=== PATIENT | female | born 1990 | race Asian ===

== ENCOUNTER 2020-01-21 11:40 | Inpatient (IN) ==
[2020-01-21] MEDS ORDERED: ONDANSETRON INJ 2 MG/ML 2 ML VIAL IV STA (12:11)
[2020-01-21] MEDS ORDERED: SODIUM CHLORIDE 0.9% 1000ML 1,000 ML IV ONE (12:11)
[2020-01-21] MEDS ORDERED: MoRPHine SULFATE 2 MG/ML CARP IV STA (12:11)
[2020-01-21 13:00] LABS: Appearance Urine Clear (Clear); Bilirubin Urine Negative (Negative); Blood Urine 1+ (Negative); Color Urine Yellow; Glucose Urine UA Negative (Negative); Ketones Urine 3+ (Negative); Leukocyte Esterase Urine Negative (Negative); Nitrite Urine Negative (Negative); Protein Urine Negative (Negative); Urobilinogen Urine Negative (Negative)
--- NOTE | 2020-01-21 13:03 | Emergency Department Note ---
History of Present Illness General Chief Complaint: Diarrhea Stated Complaint: DIARRHEA Time Seen by Provider: 01/21/20 11:53 History of Present Illness Maximum Pain Intensity: 9 This patient is a 29-year-old female who presents emergency department complaining of lower abdominal cramping and bloody diarrhea has been going on for the last 3 days. The patient has a history of the same symptoms. She is followed up with GI. She had a colonoscopy in December of this year. It showed pancolitis. The patient also reports nausea and a few episodes of vomiting. She was recently on a course of an unknown antibiotic, which seemed to improve her symptoms. She denies any fever. No recent travel. The patient contacted her GI doctor today who sent her here for evaluation. Home Medications Home Medications Medication Instructions Recorded Confirmed Type Lialda 1.2 gram tablet,delayed 2.4 gm PO BID #120 tab NS 12/25/19 01/21/20 Rx release prednisone 10 mg tablet See Rx Instructions .ROUTE 01/06/20 01/21/20 Rx .COMPLEX #126 tab lansoprazole 30 mg PO QAM 01/21/20 01/21/20 History ondansetron HCl [Zofran] 4 mg PO Q6H PRN #20 tab 01/21/20 Rx prednisone 10 mg PO DAILY #11 tab 01/21/20 Rx prenat.vits,jack,rfr-[id number] 1 tab PO Q3D 01/21/20 01/21/20 History [ #2] Allergies Allergy/AdvReac Type Severity Reaction Status Date / Time Penicillins Allergy Mild Rash Verified 01/21/20 13:55 Past Med/Surg History Medical History No significant past medical history Rectal bleeding reason for colonoscopy Surgical History History of wisdom tooth extraction Family History Family/Other No problems noted. Grandfather (Paternal) Family history of diabetes mellitus Other No family history of adverse response to anesthesia Denies family history of Crohn's disease Colorectal cancer Ulcerative colitis Social History Smoking Status: Never smoker Second Hand Exposure: No; Hx Alcohol Use: No Hx Substance Use: No Preferred Language: Mandarin Indonesian Communication Ability: Impaired Vp Clinical Research Required: No Beliefs That Will Affect Care: None marital status: Current Living Situation: Spouse Feels Safe at Home: Yes Safety Concerns: Feels Safe At This Time Review of Systems A total of 10 systems reviewed and were otherwise negative Physical Exam Vital Signs: Vital Signs - 24 hr 01/22/20 19:19 01/22/20 22:12 01/22/20 23:00 Temperature 36.7 C 36.4 C L Temperature Source Oral Oral Pulse Rate 68 Pulse Rate [Finger ] 64 66 Respiratory Rate 16 16 Blood Pressure [Ri ght Arm] 102/65 102/68 Blood Pressure Francesca n [Right Arm] 77 79 Blood Pressure Pos ition [Right Arm] Lying Lying Pulse Oximetry 97 97 Oxygen Delivery Me thod Room Air Room Air 01/23/20 03:49 01/23/20 06:37 01/23/20 09:00 Temperature 36.5 C 36.4 C L Temperature Source Oral Oral Pulse Rate 76 Pulse Rate [Finger ] 69 66 Respiratory Rate 16 16 Blood Pressure [Ri ght Arm] 101/64 96/62 L Blood Pressure Francesca n [Right Arm] 76 73 Blood Pressure Pos ition [Right Arm] Lying Lying Pulse Oximetry 98 98 Oxygen Delivery Me thod Room Air Room Air 01/23/20 11:45 01/23/20 14:00 01/23/20 15:27 Temperature 37.5 C 38.2 C H 38.2 C H Temperature Source Oral Axillary Oral Pulse Rate Pulse Rate [Finger ] 98 H 105 H Respiratory Rate 16 16 Blood Pressure [Ri ght Arm] 104/64 Blood Pressure Francesca n [Right Arm] 77 Blood Pressure Pos ition [Right Arm] Lying Pulse Oximetry 97 Oxygen Delivery Me thod Room Air 01/23/20 15:40 Temperature 39.3 C H Temperature Source Axillary Pulse Rate Pulse Rate [Finger ] 101 H Respiratory Rate 16 Blood Pressure [Ri ght Arm] 100/64 Blood Pressure Francesca n [Right Arm] 76 Blood Pressure Pos ition [Right Arm] Semi-fowlers Pulse Oximetry 99 Oxygen Delivery Me thod Room Air Constitutional: WD/WN, vitals as above Eyes: EOM intact bilaterally ENMT: Oral mucosa dry Neck: trachea midline Respiratory: normal respiratory effort, lungs clear to auscultation Cardiovascular: RRR, no murmur, no edema Gastrointestinal (Abdomen): Diffuse lower abdominal tenderness. No guarding or rebound tenderness noted. Bowel sounds hyperactive in all quadrants. Musculoskeletal: no cyanosis or clubbing, extremities motor strength 5/5 Skin: no rashes, warm and dry Neurologic: Alert and oriented x3. No focal motor deficits. Psychiatric: Acting appropriately Course Course Patient was seen and examined Vital signs including blood pressure were reviewed medications list was verified with patient Labs were obtained, and a saline lock was established Medications ordered Imaging performed and reviewed Upon reevaluation, the patient was not complaining of knee pain. An x-ray of the knee was performed and reviewed. We discussed all of the results of her imaging. We also discussed the recommendations from her GI doctor. She voiced understanding and was tolerating fluids. She did continue to have bloody diarrhea, and did not feel comfortable going home Hospitalist service was consulted for likely inpt management Consultations Consultation #1: Dr. Wray Consultation #2: il neeraj hospitalist Administered Medications Acetaminophen (Acetaminophen 325 Mg Tab) 650 mg PO Q4H PRN PRN Reason: Pain or Fever Stop: 02/20/20 21:46 Last Admin: 01/23/20 16:06 Dose: 650 mg Documented by: [id number] Potassium Chloride/Sodium Chloride (Normal Saline W/20 Meq Kcl) 20 meq in 1,000 mls @ 88 mls/hr IV .[id number] SHANELL Stop: 02/20/20 21:46 Last Admin: 01/23/20 16:07 Dose: 120 mls/hr Documented by: [id number] Infusion: 01/23/20 16:07 Dose: 120 mls/hr Documented by: [id number] Admin: 01/23/20 08:01 Dose: 120 mls/hr Documented by: [id number] Infusion: 01/23/20 07:58 Dose: 120 mls/hr Documented by: [id number] Admin: 01/22/20 23:38 Dose: 120 mls/hr Documented by: [id number] Infusion: 01/22/20 23:38 Dose: 120 mls/hr Documented by: [id number] Admin: 01/22/20 15:34 Dose: 120 mls/hr Documented by: [id number] Infusion: 01/22/20 15:01 Dose: 120 mls/hr Documented by: [id number] Admin: 01/22/20 06:41 Dose: 120 mls/hr Documented by: [id number] Infusion: 01/22/20 06:41 Dose: 120 mls/hr Documented by: [id number] Admin: 01/21/20 22:38 Dose: 120 mls/hr Documented by: [id number] Famotidine 20 mg/ Syringe 5 mls @ 2.5 mls/min IV BID PRN PRN Reason: Stomach Pain Stop: 02/20/20 21:46 Last Admin: 01/23/20 05:15 Dose: 2.5 mls/min Documented by: [id number] Methylprednisolone 30 mg/ (Syringe) 0.48 mls @ 1.5 mls/min IV BID [facility] Stop: 02/21/20 08:59 Last Admin: 01/23/20 09:03 Dose: 1.5 mls/min Documented by: [id number] Admin: 01/22/20 20:19 Dose: Not Given Documented by: [id number] Admin: 01/22/20 09:22 Dose: 1.5 mls/min Documented by: [id number] Ceftriaxone Sodium 1,000 mg/ (Dextrose) 50 mls @ 100 mls/hr IV Q24H [facility]; Protocol Stop: 02/02/20 16:59 Last Admin: 01/23/20 17:43 Dose: 100 mls/hr Documented by: [id number] Magnesium Oxide (Magnesium Oxide 400 Mg Tab) 400 mg PO BID [facility] Stop: 02/20/20 21:46 Last Admin: 01/23/20 09:02 Dose: 400 mg Documented by: [id number] Admin: 01/22/20 20:15 Dose: 400 mg Documented by: [id number] Admin: 01/22/20 09:20 Dose: 400 mg Documented by: [id number] Admin: 01/21/20 22:37 Dose: 400 mg Documented by: [id number] Mesalamine (Mesalamine 800 Mg Tabcr) 1,600 mg PO TID [facility] Stop: 02/21/20 13:59 Last Admin: 01/23/20 13:52 Dose: Not Given Documented by: [id number] Admin: 01/23/20 13:00 Dose: 1,600 mg Documented by: [id number] Admin: 01/22/20 20:15 Dose: 1,600 mg Documented by: [id number] Admin: 01/22/20 13:48 Dose: 1,600 mg Documented by: [id number] Miscellaneous (Mesalamine [Lialda] 2.4 Gm: Order Awaiting Action) 1 ea N/A QS [facility] Stop: 02/21/20 00:00 Last Admin: 01/23/20 16:07 Dose: Not Given Documented by: [id number] Admin: 01/23/20 08:03 Dose: Not Given Documented by: [id number] Admin: 01/22/20 23:48 Dose: Not Given Documented by: [id number] Admin: 01/22/20 15:35 Dose: Not Given Documented by: [id number] Admin: 01/22/20 09:20 Dose: Not Given Documented by: [id number] Admin: 01/22/20 00:03 Dose: Not Given Documented by: [id number] Multi-Ingredient Cream (Artificial Tears Op Oint 3.5 Gm Tube) 1 appln OP DAILY [facility] Stop: 02/22/20 11:44 Last Admin: 01/23/20 13:22 Dose: Not Given Documented by: [id number] Multivitamins/Minerals (Calcium 600mg + Vit D 400 Iu Tab) 1 tab PO BID [facility] Stop: 02/21/20 20:59 Last Admin: 01/23/20 09:02 Dose: 1 tab Documented by: [id number] Admin: 01/22/20 20:15 Dose: 1 tab Documented by: [id number] Ondansetron HCl (Ondansetron Inj 2 Mg/Ml 2 Ml Vial) 4 mg IV Q6H PRN PRN Reason: Nausea Stop: 02/22/20 08:09 Last Admin: 01/23/20 09:28 Dose: 4 mg Documented by: [id number] Pantoprazole Sodium (Pantoprazole 40 Mg Tab) 40 mg PO DAILY SHANELL Stop: 02/21/20 08:59 Last Admin: 01/23/20 09:02 Dose: 40 mg Documented by: [id number] Admin: 01/22/20 09:20 Dose: 40 mg Documented by: [id number] Discontinued Medications Sodium Chloride (Nss 1000ml) 1,000 mls @ 999 mls/hr IV .Q1H1M ONE Stop: 01/21/20 13:11 Last Infusion: 01/21/20 14:59 Dose: 0 mls/hr Documented by: [id number] Admin: 01/21/20 13:53 Dose: 999 mls/hr Documented by: [id number] Sodium Chloride (Nss 1000ml) 500 mls @ 999 mls/hr IV .Q31M ONE Stop: 01/21/20 15:23 Last Infusion: 01/21/20 16:01 Dose: 0 mls/hr Documented by: [id number] Admin: 01/21/20 15:25 Dose: 999 mls/hr Documented by: [id number] Potassium Chloride (K Claudio / Wtr) 10 meq in 100 mls @ 100 mls/hr IV Q1H SHANELL Stop: 01/22/20 01:59 Last Infusion: 01/22/20 07:15 Dose: 0 mls/hr Documented by: [id number] Admin: 01/22/20 04:56 Dose: 50 mls/hr Documented by: [id number] Infusion: 01/22/20 04:37 Dose: 50 mls/hr Documented by: [id number] Infusion: 01/22/20 03:17 Dose: 50 mls/hr Documented by: [id number] Admin: 01/22/20 02:46 Dose: 65 mls/hr Documented by: [id number] Infusion: 01/22/20 02:43 Dose: 50 mls/hr Documented by: [id number] Admin: 01/22/20 00:43 Dose: 50 mls/hr Documented by: [id number] Infusion: 01/22/20 00:28 Dose: 50 mls/hr Documented by: [id number] Infusion: 01/21/20 22:49 Dose: 50 mls/hr Documented by: [id number] Admin: 01/21/20 22:38 Dose: 100 mls/hr Documented by: [id number] Ioversol (Ioversol 100ml) 92 ml IV ONCE ONE Stop: 01/21/20 15:52 Last Admin: 01/21/20 15:51 Dose: 92 ml Documented by: [id number] Methylprednisolone (Methylprednisolone 125 Mg/2 Ml Vial) 60 mg IV NOW STA Stop: 01/21/20 20:18 Last Admin: 01/21/20 20:36 Dose: 60 mg Documented by: [id number] Morphine Sulfate (Morphine Sulfate 2 Mg/Ml Carp) 2 mg IV NOW STA Stop: 01/21/20 12:12 Last Admin: 01/21/20 13:53 Dose: Not Given Documented by: [id number] Ondansetron HCl (Ondansetron Inj 2 Mg/Ml 2 Ml Vial) 4 mg IV NOW STA Stop: 01/21/20 12:12 Last Admin: 01/21/20 13:53 Dose: Not Given Documented by: [id number] Potassium Chloride (Potassium Chloride 20 Meq/15 Ml Udc) 40 meq PO NOW STA Stop: 01/21/20 15:14 Last Admin: 01/21/20 15:25 Dose: 40 meq Documented by: [id number] Medical Decision Making Differential Diagnosis Differential diagnosis: Infectious etiology, inflammatory bowel disease, hemorrhoids, rectal abscess, anal fissure, among others This patient is a 29-year-old female who presents emergency department complaining of bloody diarrhea for the last several days. On exam, her vital signs are stable. Abdomen was slightly tender without any guarding or rebound tenderness. A work-up was performed. Her white count was slightly elevated at 14,000. She is not anemic. Her potassium and sodium are slightly low. She was hydrated in the emergency department. Her potassium was repleted. The case was discussed with her GI doctor. He said that she contacted the office and reportedly stopped her prednisone and mesalamine as she thought that it was causing her joint pain. X-ray of the knee was performed and reviewed. No acute abnormalities were noted. After lengthy observation in the ED, the pt continued to have bloody diarrhea and did not feel comfortable being discharged. Given her CT findings and labs, hospitalist consultation was felt appropriate. Medical Records Attestation: I reviewed the patient's medical records. Home Medications Current Medication List: was personally reviewed by me Laboratory Data Attestation: I reviewed the patient's lab results. Result diagrams: 01/23/20 07:00 01/22/20 06:54 Lab Results 01/21/20 01/21/20 01/21/20 Range/Units 12:45 13:45 13:45 WBC 14.35 H (4.8-10.8) K/uL RBC 5.69 H (4.2-5.4) M/uL Hgb 16.9 H (12.0-16.0) g/dL Hct 46.5 (37-47) % MCV 81.7 (80-100) fL MCH 29.7 (25-34) pg MCHC 36.3 H (32-36) g/dL RDW Std Deviation 39.0 (36.4-46.3) fL RDW Coeff of Johnathan 13.0 (11.5-14.5) % Plt Count 492 H (130-400) K/uL MPV 8.5 (7.4-10.4) fL Immature Gran % (Auto) 0.3 % Neut % (Auto) 58.9 % Lymph % (Auto) 18.2 % [place] % (Auto) 16.2 % Eos % (Auto) 5.8 % Baso % (Auto) 0.6 % Neut # (Auto) 8.46 H (1.4-6.5) K/uL Lymph # (Auto) 2.61 (1.2-3.4) K/uL [place] # (Auto) 2.32 H (0.11-0.59) K/uL Eos # (Auto) 0.83 H (0-0.5) K/uL Baso # (Auto) 0.09 (0-0.2) K/uL Immature Gran # (Auto) 0.04 H (0.00-0.02) K/uL Sodium 131 L (136-145) mmol/L Potassium 3.0 L (3.5-5.1) mmol/L Chloride 99 (98-107) mmol/L Carbon Dioxide 21 (21-32) mmol/L Anion Gap 11.0 (3-11) BUN 3 L (7-18) mg/dl Creatinine 0.61 (0.6-1.2) mg/dl Est Cr Clr Drug Dosing 97.0 ml/min Est GFR ( Amer) 140.0 Est GFR (Non-Af Amer) 120.8 BUN/Creatinine Ratio 4.7 L (10-20) Glucose 101 H (70-99) mg/dl Calcium 10.0 (8.5-10.1) mg/dl Magnesium (1.8-2.4) mg/dl Iron (35-150) mcg/dl Transferrin (200-360) mg/dl Transferrin % Sat (15-50) % Ferritin (8-388) ng/ml Total Bilirubin 0.7 (0.2-1) mg/dl AST 17 (15-37) U/L ALT 16 (12-78) U/L Alkaline Phosphatase 75 (45-117) U/L C-Reactive Protein (0-0.29) mg/dl Total Protein 8.9 H (6.4-8.2) gm/dl Albumin 3.9 (3.4-5.0) gm/dl Globulin 5.0 H (2.5-4.0) gm/dl Albumin/Globulin Ratio 0.8 L (0.9-2) Lipase 194 (73-393) U/L Vitamin B12 (211-911) pg/ml 25-OH Vitamin D Total (30-100) ng/ml HCG, Qual (Negative) Urine Color Yellow Urine Appearance Clear (Clear) Urine pH 6.0 (4.5-7.5) Ur Specific [place] 1.010 (1.000-1.030) Urine Protein Negative (Negative) Urine Glucose (UA) Negative (Negative) Urine Ketones 3+ H (Negative) Urine Blood 1+ H (Negative) Urine Nitrite Negative (Negative) Urine Bilirubin Negative (Negative) Urine Urobilinogen Negative (Negative) Ur Leukocyte Esterase Negative (Negative) Urine RBC 0-4 (0-4) /hpf Urine WBC 0-5 (0-5) /hpf Ur Epithelial Cells >30 H (0-5) /lpf Urine Bacteria 1+ H (Negative) Stl C. diff Tox B Gene (Neg) 01/21/20 01/21/20 01/22/20 Range/Units 13:45 13:45 06:54 WBC 13.87 H (4.8-10.8) K/uL RBC 4.61 (4.2-5.4) M/uL Hgb 13.5 D (12.0-16.0) g/dL Hct 38.2 (37-47) % MCV 82.9 (80-100) fL MCH 29.3 (25-34) pg MCHC 35.3 (32-36) g/dL RDW Std Deviation 40.0 (36.4-46.3) fL RDW Coeff of Johnathan 13.3 (11.5-14.5) % Plt Count 480 H (130-400) K/uL MPV 8.5 (7.4-10.4) fL Immature Gran % (Auto) 0.4 % Neut % (Auto) 82.7 % Lymph % (Auto) 11.5 % Glades % (Auto) 5.1 % Eos % (Auto) 0.2 % Baso % (Auto) 0.1 % Neut # (Auto) 11.46 H (1.4-6.5) K/uL Lymph # (Auto) 1.59 (1.2-3.4) K/uL Glades # (Auto) 0.71 H (0.11-0.59) K/uL Eos # (Auto) 0.03 (0-0.5) K/uL Baso # (Auto) 0.02 (0-0.2) K/uL Immature Gran # (Auto) 0.06 H (0.00-0.02) K/uL Sodium (136-145) mmol/L Potassium (3.5-5.1) mmol/L Chloride (98-107) mmol/L Carbon Dioxide (21-32) mmol/L Anion Gap (3-11) BUN (7-18) mg/dl Creatinine (0.6-1.2) mg/dl Est Cr Clr Drug Dosing ml/min Est GFR ( Amer) Est GFR (Non-Af Amer) BUN/Creatinine Ratio (10-20) Glucose (70-99) mg/dl Calcium (8.5-10.1) mg/dl Magnesium (1.8-2.4) mg/dl Iron (35-150) mcg/dl Transferrin (200-360) mg/dl Transferrin % Sat (15-50) % Ferritin (8-388) ng/ml Total Bilirubin (0.2-1) mg/dl AST (15-37) U/L ALT (12-78) U/L Alkaline Phosphatase (45-117) U/L C-Reactive Protein 10.50 H (0-0.29) mg/dl Total Protein (6.4-8.2) gm/dl Albumin (3.4-5.0) gm/dl Globulin (2.5-4.0) gm/dl Albumin/Globulin Ratio (0.9-2) Lipase (73-393) U/L Vitamin B12 (211-911) pg/ml 25-OH Vitamin D Total (30-100) ng/ml HCG, Qual Negative (Negative) Urine Color Urine Appearance (Clear) Urine pH (4.5-7.5) Ur Specific [place] (1.000-1.030) Urine Protein (Negative) Urine Glucose (UA) (Negative) Urine Ketones (Negative) Urine Blood (Negative) Urine Nitrite (Negative) Urine Bilirubin (Negative) Urine Urobilinogen (Negative) Ur Leukocyte Esterase (Negative) Urine RBC (0-4) /hpf Urine WBC (0-5) /hpf Ur Epithelial Cells (0-5) /lpf Urine Bacteria (Negative) Stl C. diff Tox B Gene (Neg) 01/22/20 01/23/20 01/23/20 Range/Units 06:54 07:00 07:00 WBC (4.8-10.8) K/uL RBC (4.2-5.4) M/uL Hgb (12.0-16.0) g/dL Hct (37-47) % MCV (80-100) fL MCH (25-34) pg MCHC (32-36) g/dL RDW Std Deviation (36.4-46.3) fL RDW Coeff of Johnathan (11.5-14.5) % Plt Count (130-400) K/uL MPV (7.4-10.4) fL Immature Gran % (Auto) % Neut % (Auto) % Lymph % (Auto) % Glades % (Auto) % Eos % (Auto) % Baso % (Auto) % Neut # (Auto) (1.4-6.5) K/uL Lymph # (Auto) (1.2-3.4) K/uL Glades # (Auto) (0.11-0.59) K/uL Eos # (Auto) (0-0.5) K/uL Baso # (Auto) (0-0.2) K/uL Immature Gran # (Auto) (0.00-0.02) K/uL Sodium 138 D (136-145) mmol/L Potassium 4.4 D (3.5-5.1) mmol/L Chloride 111 H (98-107) mmol/L Carbon Dioxide 19 L (21-32) mmol/L Anion Gap 8.0 (3-11) BUN 2 L (7-18) mg/dl Creatinine 0.38 L (0.6-1.2) mg/dl Est Cr Clr Drug Dosing 155.8 ml/min Est GFR ( Amer) > 150.0 Est GFR (Non-Af Amer) 141.2 BUN/Creatinine Ratio 5.5 L (10-20) Glucose 117 H (70-99) mg/dl Calcium 8.8 (8.5-10.1) mg/dl Magnesium 2.3 (1.8-2.4) mg/dl Iron 39 (35-150) mcg/dl Transferrin 173 L (200-360) mg/dl Transferrin % Sat 16 (15-50) % Ferritin 84.5 (8-388) ng/ml Total Bilirubin 0.4 (0.2-1) mg/dl AST 11 L (15-37) U/L ALT 13 (12-78) U/L Alkaline Phosphatase 58 (45-117) U/L C-Reactive Protein (0-0.29) mg/dl Total Protein 6.9 D (6.4-8.2) gm/dl Albumin 2.9 L (3.4-5.0) gm/dl Globulin 4.0 (2.5-4.0) gm/dl Albumin/Globulin Ratio 0.7 L (0.9-2) Lipase (73-393) U/L Vitamin B12 1271 H (211-911) pg/ml 25-OH Vitamin D Total (30-100) ng/ml HCG, Qual (Negative) Urine Color Urine Appearance (Clear) Urine pH (4.5-7.5) Ur Specific [place] (1.000-1.030) Urine Protein (Negative) Urine Glucose (UA) (Negative) Urine Ketones (Negative) Urine Blood (Negative) Urine Nitrite (Negative) Urine Bilirubin (Negative) Urine Urobilinogen (Negative) Ur Leukocyte Esterase (Negative) Urine RBC (0-4) /hpf Urine WBC (0-5) /hpf Ur Epithelial Cells (0-5) /lpf Urine Bacteria (Negative) Stl C. diff Tox B Gene (Neg) 01/23/20 01/23/20 01/23/20 Range/Units 07:00 07:00 16:30 WBC 13.93 H (4.8-10.8) K/uL RBC 4.27 (4.2-5.4) M/uL Hgb 12.4 (12.0-16.0) g/dL Hct 36.3 L (37-47) % MCV 85.0 (80-100) fL MCH 29.0 (25-34) pg MCHC 34.2 (32-36) g/dL RDW Std Deviation 42.5 (36.4-46.3) fL RDW Coeff of Johnathan 13.7 (11.5-14.5) % Plt Count 501 H (130-400) K/uL MPV 8.5 (7.4-10.4) fL Immature Gran % (Auto) 0.6 % Neut % (Auto) 68.2 % Lymph % (Auto) 14.7 % [place]ades % (Auto) 15.1 % Eos % (Auto) 1.0 % Baso % (Auto) 0.4 % Neut # (Auto) 9.49 H (1.4-6.5) K/uL Lymph # (Auto) 2.05 (1.2-3.4) K/uL Glades # (Auto) 2.11 H (0.11-0.59) K/uL Eos # (Auto) 0.14 (0-0.5) K/uL Baso # (Auto) 0.05 (0-0.2) K/uL Immature Gran # (Auto) 0.09 H (0.00-0.02) K/uL Sodium (136-145) mmol/L Potassium (3.5-5.1) mmol/L Chloride (98-107) mmol/L Carbon Dioxide (21-32) mmol/L Anion Gap (3-11) BUN (7-18) mg/dl Creatinine (0.6-1.2) mg/dl Est Cr Clr Drug Dosing ml/min Est GFR ( Amer) Est GFR (Non-Af Amer) BUN/Creatinine Ratio (10-20) Glucose (70-99) mg/dl Calcium (8.5-10.1) mg/dl Magnesium (1.8-2.4) mg/dl Iron (35-150) mcg/dl Transferrin (200-360) mg/dl Transferrin % Sat (15-50) % Ferritin (8-388) ng/ml Total Bilirubin (0.2-1) mg/dl AST (15-37) U/L ALT (12-78) U/L Alkaline Phosphatase (45-117) U/L C-Reactive Protein (0-0.29) mg/dl Total Protein (6.4-8.2) gm/dl Albumin (3.4-5.0) gm/dl Globulin (2.5-4.0) gm/dl Albumin/Globulin Ratio (0.9-2) Lipase (73-393) U/L Vitamin B12 (211-911) pg/ml 25-OH Vitamin D Total 30.8 (30-100) ng/ml HCG, Qual (Negative) Urine Color Urine Appearance (Clear) Urine pH (4.5-7.5) Ur Specific [place] (1.000-1.030) Urine Protein (Negative) Urine Glucose (UA) (Negative) Urine Ketones (Negative) Urine Blood (Negative) Urine Nitrite (Negative) Urine Bilirubin (Negative) Urine Urobilinogen (Negative) Ur Leukocyte Esterase (Negative) Urine RBC (0-4) /hpf Urine WBC (0-5) /hpf Ur Epithelial Cells (0-5) /lpf Urine Bacteria (Negative) Stl C. diff Tox B Gene Negative Cdiff Gene (Neg) Imaging Data Attestation: I personally reviewed and interpreted this imaging study as follows: Radiologist's Impression: CT abdomen and pelvis with IV and oral contrast IMPRESSION: Moderate wall thickening of the colon and rectum which has increased since CT of December 07, 2019. Mild pericolonic infiltration and prominent pericolonic lymph nodes which are likely reactive. Decreased haustration of the left colon. An inflammatory etiology such as ulcerative colitis is favored. An infectious etiology could appear similar. No abscess. Normal appendix. ACT 112: Negative or not required by law. Electronically signed by: Suhail Conrad M.D. 01/21/2020 4:08 PM Dictated: 01/21/20 1550 Transcribed: 01/21/20 1552 Left knee x-ray IMPRESSION: 1. No evidence of fracture 2. No erosive or destructive changes identified ACT 112: Negative or not required by law. Electronically signed by: Monty Pope M.D. 01/21/2020 4:19 PM Dictated: 01/21/20 1619 Transcribed: 01/21/20 1619 MDM Narrative see above Impression & Plan IBD (inflammatory bowel disease), Acute lower gastrointestinal bleeding Discharge Plan Visit Data Chief Complaint: Diarrhea Stated Complaint: DIARRHEA ED Provider: Balaji Wooten ED Midlevel Provider: Stephanie Jacobs Discharge Problem: IBD (inflammatory bowel disease), Acute lower gastrointestinal bleeding Patient Disposition: Home - Self-Care Discharge Instructions Interventions: ED Discharge Assessment Last Done: 01/21/20 21:06
[2020-01-21 13:08] LABS: Bacteria Urine 1+ (Negative); Epithelial Cell Urine >30 /lpf (0-5); RBC Urine 0-4 /hpf (0-4); WBC Urine 0-5 /hpf (0-5)
[2020-01-21 13:58] LABS: Basophils # (auto) 0.09 K/uL (0-0.2); Basophils % (auto) 0.6 %; Eosinophils # (auto) 0.83 K/uL (0-0.5); Eosinophils % (auto) 5.8 %; Hematocrit (blood only) 46.5 % (37-47); Hemoglobin 16.9 g/dL (12.0-16.0); Immature Granulocytes # (auto) 0.04 K/uL (0.00-0.02); Immature Granulocytes % (auto) 0.3 %; Lymphocytes # (auto) 2.61 K/uL (1.2-3.4); Lymphocytes % (auto) 18.2 %; Mean Corpuscular Hemoglobin 29.7 pg (25-34); Mean Corpuscular Hgb Conc 36.3 g/dL (32-36); Mean Corpuscular Volume 81.7 fL (80-100); Mean Platelet Volume 8.5 fL (7.4-10.4); Monocytes # (auto) 2.32 K/uL (0.11-0.59); Monocytes % (auto) 16.2 %; Neutrophils # (auto) 8.46 K/uL (1.4-6.5); Neutrophils % (auto) 58.9 %; Platelet Count 492 K/uL (130-400); Red Blood Count 5.69 M/uL (4.2-5.4); White Blood Count 14.35 K/uL (4.8-10.8)
[2020-01-21 14:26] LABS: Pregnancy Test, Serum Negative (Negative)
[2020-01-21 14:37] LABS: Albumin Level 3.9 gm/dl (3.4-5.0); BUN Creatinine Ratio 4.7 (10-20); Est GFR (Non-African American) 120.8
[2020-01-21 14:40] LABS: Albumin Globulin Ratio 0.8 (0.9-2); Bilirubin,Total 0.7 mg/dl (0.2-1); Total Protein 8.9 gm/dl (6.4-8.2)
[2020-01-21] MEDS ORDERED: SODIUM CHLORIDE 0.9% 1000ML 500 ML IV ONE (14:53)
[2020-01-21] MEDS ORDERED: POTASSIUM CHLORIDE 20 MEQ/15 ML UDC PO STA (15:13)
[2020-01-21] MEDS ORDERED: IOVERSOL 100ml IV ONE (15:51)
--- NOTE | 2020-01-21 16:09 | CT Scan Report ---
CT OF THE ABDOMEN AND PELVIS WITH CONTRAST CLINICAL HISTORY: Abdominal pain, bloody diarrhea, nausea and vomiting. COMPARISON STUDY: CT of the abdomen and pelvis December 07, 2019. TECHNIQUE: Following IV administration of 92 mL of Optiray-320, axial images of the abdomen and pelvi s were obtained from the lung bases to the proximal femurs. Images were reviewed in the axial, sagitt al, and coronal planes. IV contrast was administered without complication. Automated exposure contro l was utilized for the study. A dose lowering technique was utilized adhering to the principles of A VERONIQUE. Oral contrast was administered. CT DOSE: 261.60 mGycm FINDINGS: Lung bases are clear. No pneumatosis, free air or portal venous gas is present. A few subce ntimeter hepatic lesions favor hemangiomas. The adrenal glands, kidneys and pancreas are normal. Ther e is no biliary or pancreatic ductal dilatation. There is no evidence for a bowel obstruction. There is moderate wall thickening of the colon. This has progressed since CT of December 07, 2019. There is mild pericolonic infiltration. There are prominent pericolonic lymph nodes. There is decreased haustratio n of the left colon. There is no abscess. Appendix is normal. Corpus luteum cyst within the right ova ry is noted. No suspicious lesions within the bony thorax are noted. Major vasculature is patent. Inc idental note is made of a pancreas divisum. IMPRESSION: Moderate wall thickening of the colon and rectum which has increased since CT of December 07, 2019. Mild pericolonic infiltration and prominent pericolonic lymph nodes which are likely reactive. Decreased haustration of the left colon. An inflammatory etiology such as ulcerative colitis is favo red. An infectious etiology could appear similar. No abscess. Normal appendix. ACT 112: Negative or not required by law. Electronically signed by: Suhail Conrad M.D. 01/21/2020 4:08 PM
--- NOTE | 2020-01-21 16:21 | XRay Report ---
XR knee LT 3V CLINICAL HISTORY: Left knee pain. COMPARISON: None. DISCUSSION: No fractures or dislocations are visualized. No erosive or destructive changes are eviden t. There is no radiographic evidence of joint effusion. IMPRESSION: 1. No evidence of fracture 2. No erosive or destructive changes identified ACT 112: Negative or not required by law. Electronically signed by: Monty Pope M.D. 01/21/2020 4:19 PM
--- NOTE | 2020-01-21 20:08 | History & Physical Report ---
Date of Service January 21, 2020 Assessment & Plan (1) IBD (inflammatory bowel disease): Chencho Jernigan" Is a 29-year-old female recently diagnosed with ulcerative colitis at the beginning of December who presents with increased abdominal pain, inability to tolerate p.o. food/liquid without induction of severe diarrhea, bloody diarrhea after completing a steroid taper more rapidly than initially prescribed. Ulcerative colitis, pancolitis Patient with symptoms of bloody diarrhea, abdominal discomfort for 1 month, greatly increased in the last week after stopping a prednisone taper Continue RN FIELD CASE MANAGER mesalamine, patient's last dose was yesterday CT-Ab:Moderate wall thickening of the colon and rectum which has increased since CT of December 07, 2019. Mild pericolonic infiltration and prominent pericolonic lymph nodes which are likely reactive. Decreased haustration of the left colon. An inflammatory etiology such as ulcerative colitis is favored GI consulted, patient known to Dr. Wray Methylprednisolone 60 mg daily as split dose Full liquid diet, may advance as tolerated - APAP - Zofran 4mg PRN IV Hypokalemia In the setting of increased diarrhea and pancolitis IV repletion ordered, magnesium repletion ordered BMP daily IV fluids as below FEN/GI: NSS + KCl DVT: SCDs, pharmacoprophylaxis contraindicated in the setting of bleeding colitis Dispo: Med/Tele COde: Full Code (2) Ulcerative pancolitis: (3) Acute lower gastrointestinal bleeding: (4) Helicobacter pylori (H. pylori) infection: (5) Encounter for laboratory testing for COVID-19 virus: (6) Abdominal pain, bilateral lower quadrant: History of Present Illness Chief Complaint: Bloody Diarrhea Primary Care Provider: [facility] Chencho Jernigan" Is a 29-year-old female recently diagnosed with ulcerative colitis at the beginning of December who presents with increased abdominal pain, inability to tolerate p.o. food/liquid without induction of severe diarrhea, bloody diarrhea after completing a steroid taper more rapidly than initially prescribed. Janell was seen by Dr. Wray on December 10 for abdominal pain and bloody diarrhea. She underwent a colonoscopy which showed diffuse area of congested, erythematous, friable mucosa with contact bleeding and several biopsies were taken. She was diagnosed with ulcerative colitis and prescribed a prednisone taper and oral mesalamine. She was treated with triple therapy for H. pylori at the time. She was scheduled for follow-up in 8 weeks with repeat colonoscopy in 6 to 12 months with additional EGD due to H. pylori. As well reports that she has been taking the mesalamine as prescribed, but had difficulty splitting the prednisone tablets in half so decreased by 10 mg/week instead of 5 mg and took her last prednisone dose about 1 week ago. She reports she has had some stomachache, and loose bowels in the past month but that they have rapidly increased in the last week and she presented to the emergency department after any food or oral intake caused increased liquid diarrhea with bright red blood. She denies fever, chills. Denies mucus in her bowel movements. She endorses a history of intermittent low blood pressure in the past, denies other medical history. Medications: Reviewed Medical history: Reviewed, pertinent positive for recent diagnosis of UC Surgical history: Reviewed Allergies: Reviewed, endorses diarrhea due to penicillin Social: Denies tobacco, alcohol, and recreational drug use. 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 CODE STATUS: Full code, Allergies Allergy/AdvReac Type Severity Reaction Status Date / Time Penicillins Allergy Mild Rash Verified 01/21/20 13:55 Home Medications Home Medications Medication Instructions Recorded Confirmed Type Lialda 1.2 gram tablet,delayed 2.4 gm PO BID #120 tab NS 12/25/19 01/21/20 Rx release prednisone 10 mg tablet See Rx Instructions .ROUTE 01/06/20 01/21/20 Rx .COMPLEX #126 tab lansoprazole 30 mg PO QAM 01/21/20 01/21/20 History ondansetron HCl [Zofran] 4 mg PO Q6H PRN #20 tab 01/21/20 Rx prednisone 10 mg PO DAILY #11 tab 01/21/20 Rx prenat.vits,jack,[id number]-[id number] 1 tab PO Q3D 01/21/20 01/21/20 History [ #2] Past Med/Surg History Medical History No significant past medical history Rectal bleeding reason for colonoscopy Surgical History History of wisdom tooth extraction Family History Family/Other No problems noted. Grandfather (Paternal) Family history of diabetes mellitus Other No family history of adverse response to anesthesia Denies family history of Crohn's disease Colorectal cancer Ulcerative colitis Social History Smoking Status: Never smoker Second Hand Exposure: No; Hx Alcohol Use: No Hx Substance Use: No Preferred Language: Mandarin Estonian Communication Ability: Impaired Medical Care Manager Required: No Beliefs That Will Affect Care: None marital status: Current Living Situation: Spouse Feels Safe at Home: Yes Safety Concerns: Feels Safe At This Time Review of Systems Review of Systems: All systems reviewed & are unremarkable except as noted in HPI & below Physical Exam Physical Exam: General: A&Ox3. NAD. Cooperative. HEENT: Atraumatic, normocephalic. Mucous membranes tacky. Pulm: CTAB A&P. -wheezes, -rales, -rhonchi. Symmetrical chest rise. No increase work of breathing. No respiratory distress. Cardiac: Tachycardic, regular, -mrg. Radial pulses intact and symmetrical. Abdominal: Diffuse mild tenderness to light palpation most prominent in umbilical, left lower quadrant. No rebound tenderness. Nonrigid. No guarding. Extremities: Warm, dry. Sensation intact to soft touch in fingertips and toes. Conductor Symphonic Orchestra strength and ankle plantarflexion/dorsiflexion intact without asymmetry. Results & Data Results & Data ([facility]) Vital Signs (Past 12 Hours) Vital Signs Temp Pulse Pulse Resp BP BP Pulse Ox 01/21/20 19:31 96 H 16 99 01/21/20 19:30 98 H 19 125/75 100 01/21/20 19:01 89 17 97 01/21/20 19:00 86 19 118/88 98 01/21/20 18:56 87 18 97 01/21/20 18:55 91 H 20 128/83 98 01/21/20 18:54 95 H 20 01/21/20 17:01 93 H 20 98 01/21/20 17:00 92 H 15 130/86 98 01/21/20 16:53 92 H 17 140/82 98 01/21/20 16:37 84 23 01/21/20 16:00 93 H 20 124/80 99 01/21/20 15:31 92 H 22 98 01/21/20 15:30 92 H 19 135/88 98 01/21/20 15:25 90 16 97 01/21/20 15:24 93 H 20 116/86 98 01/21/20 14:31 88 16 98 01/21/20 14:30 87 15 117/80 99 01/21/20 14:03 89 18 100 01/21/20 14:00 86 14 127/90 99 01/21/20 13:53 92 H 20 111/86 98 01/21/20 11:41 37.0 C 72 16 107/77 98 Supervising Physician Co-Signing Physician Notes Attending addendum: I have physically seen this patient, have supervised the medical residents activities, and agree with the H&P unless as otherwise noted. Assessment and Plan: Ulcerative colitis exacerbation/pancolitis- Continues on mesalamine, with last dose yesterday. Prednisone taper was completed 1 month ago, but inappropriately went from 4 tablets daily down to 1 tablet daily and then stopped due to not being able to cut pills. CT abdomen pelvis consistent with ulcerative colitis exacerbation. Consult her blackjack dealer Dr. Wray Give methylprednisolone IV. Zofran 4 mg IV every 6 hours as needed Famotidine 20 mg IV every 12 hours Tylenol 650 mg p.o. every 6 hours PRN mild pain or temperature. NSS + KCl 20 mEq at 100 mils per hour Further management per Dr. Wray Remainder orders and notations as noted Resident Activity Tracking Resident Involvement: Resident Care Provided Care Provided: Adult [facility] Medicine
[2020-01-21] MEDS ORDERED: methylPREDNISolone 125 MG/2 ML VIAL IV STA (20:17)
[2020-01-21] MEDS ORDERED: NON-FORMULARY MEDICATION (Mesalamine [Lialda] 2.4 GM) PO SCH (21:47)
[2020-01-21] MEDS: MAGNESIUM OXIDE 400 MG TAB PO SCH (22:37)
[2020-01-21] MEDS: POTASSIUM CHLORIDE / WTR 10 MEQ/100 ML PLCT IV SCH (22:38)
[2020-01-21] MEDS: NSS + 20MEQ KCL 20 MEQ/1,000 ML BAG IV SCH (22:38)
[2020-01-22] MEDS: POTASSIUM CHLORIDE / WTR 10 MEQ/100 ML PLCT IV SCH ×3 (00:43→04:56)
--- NOTE | 2020-01-22 06:25 | Billing Data ---
Date of Service January 22, 2020 Coding Level of Care Code 87613 Initial Inpt Care Lvl 2
[2020-01-22] MEDS: NSS + 20MEQ KCL 20 MEQ/1,000 ML BAG IV SCH ×3 (06:41→23:38)
[2020-01-22 07:37] LABS: Basophils # (auto) 0.02 K/uL (0-0.2); Basophils % (auto) 0.1 %; Eosinophils # (auto) 0.03 K/uL (0-0.5); Eosinophils % (auto) 0.2 %; Hematocrit (blood only) 38.2 % (37-47); Hemoglobin 13.5 g/dL (12.0-16.0); Immature Granulocytes # (auto) 0.06 K/uL (0.00-0.02); Immature Granulocytes % (auto) 0.4 %; Lymphocytes # (auto) 1.59 K/uL (1.2-3.4); Lymphocytes % (auto) 11.5 %; Mean Corpuscular Hemoglobin 29.3 pg (25-34); Mean Corpuscular Hgb Conc 35.3 g/dL (32-36); Mean Corpuscular Volume 82.9 fL (80-100); Mean Platelet Volume 8.5 fL (7.4-10.4); Monocytes # (auto) 0.71 K/uL (0.11-0.59); Monocytes % (auto) 5.1 %; Neutrophils # (auto) 11.46 K/uL (1.4-6.5); Neutrophils % (auto) 82.7 %; Platelet Count 480 K/uL (130-400); RDW Coefficient of Variation 13.3 % (11.5-14.5); Red Blood Count 4.61 M/uL (4.2-5.4); White Blood Count 13.87 K/uL (4.8-10.8)
[2020-01-22 08:02] LABS: Alanine Aminotransferase 13 U/L (12-78); Albumin Level 2.9 gm/dl (3.4-5.0); Aspartate Aminotransferase 11 U/L (15-37); BUN Creatinine Ratio 5.5 (10-20); Blood Urea Nitrogen 2 mg/dl (7-18); Calcium 8.8 mg/dl (8.5-10.1); Carbon Dioxide 19 mmol/L (21-32); Chloride 111 mmol/L (98-107); Creatinine Clr Calc Pharmacy 155.8 ml/min; Est GFR (African American) > 150.0; Est GFR (Non-African American) 141.2; Glucose 117 mg/dl (70-99); Magnesium 2.3 mg/dl (1.8-2.4); Potassium 4.4 mmol/L (3.5-5.1); Sodium 138 mmol/L (136-145)
[2020-01-22 08:06] LABS: Albumin Globulin Ratio 0.7 (0.9-2); Alkaline Phosphatase 58 U/L (45-117); Bilirubin,Total 0.4 mg/dl (0.2-1); Total Protein 6.9 gm/dl (6.4-8.2)
[2020-01-22] MEDS: MAGNESIUM OXIDE 400 MG TAB PO SCH ×2 (09:20→20:15)
[2020-01-22] MEDS: PANTOprazole 40 MG TAB PO SCH (09:20)
[2020-01-22] MEDS: methylPREDNISolone 30 MG in SYRINGE 0 ML IV SCH ×3 (09:22→20:19)
--- NOTE | 2020-01-22 10:30 | Hospitalist Progress Note ---
Date of Service January 22, 2020 Assessment & Plan (1) IBD (inflammatory bowel disease): Chencho Jernigan" Is a 29-year-old female recently diagnosed with ulcerative colitis at the beginning of December who presents with increased abdominal pain, inability to tolerate p.o. food/liquid without induction of severe diarrhea, bloody diarrhea after completing a steroid taper more rapidly than initially prescribed. Ulcerative colitis flare, pancolitis Patient with symptoms of bloody diarrhea, abdominal discomfort for 1 month, greatly increased in the last week after stopping a prednisone taper. Does not appear to have properly completed her previous prednisone taper, having done it in 4 weeks instead of 8. 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 Mild pericolonic infiltration and prominent pericolonic lymph nodes which are likely reactive. Decreased haustration of the left colon. An inflammatory etiology such as ulcerative colitis is favored GI: continuse meslamine, continue methylpred 30 mg IV BID, tapered oral pred over 8 weeks at discharge, vitamin supplementation with calcium and vitamin D given high dose steroids Full liquid diet, may advance as tolerated - APAP - Zofran 4mg PRN IV Hypokalemia In the setting of increased diarrhea and pancolitis IV repletion ordered, magnesium repletion ordered BMP daily IV fluids as below Anxiety - Patient highly anxious regarding acceptance of her disease process as being lifelong/not being able to be cured - frequently gets into thought spirals regarding vitamin supplementation, finding a gene cure/receptor based cure for the disease - 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 pylori) infection: (5) Encounter for laboratory testing for COVID-19 virus: (6) Abdominal pain, bilateral lower quadrant: Admission and Anticipated Discharge Date Admission Date: January 21, 2020 Supervising Physician Co-Signing Physician Notes I personally examined the patient and verified all jacob points of history and exam, discussed case, and agree with decision making with Dr García. very anxious and somewhat fixated on gene expression and nutrient deficiencies as it might relate to her IBD. discussed what she thought were diet interactions with her intestines. wonders repeatedly down different lines of thinking what she could do to make it go away. discusses what her mother has been telling her should be going on as well. vitals noted nad heent nc at mmm breathing unlabored no accessory muscles good effort skin no rashes no pallor or icterus neuro no focal deficits, pleasant but anxious with fairly pressured speech UC flare -after revisiting hx - her "food intolerances" seem more symptomatic from the UC than anything - i suspect that she never really improved a lot -- agree w GI that it will likely take more aggressive therapy to get this settled down -continue steroids -given ongoing IBD/bleeding/etc - quite reasonable to check Fe levels, B12, and to supplement what is low, as well as supplement Ca/D as already ordered by GI anxiety -strongly suspect pressured speech/fixation on minerals/gene-expression/etc is really more manifest of a combination of anxiety over a chronic dx and how she's been feeling, combined with a degree of denial in the face of having just been labeled with a chronic disease in the last month or so --> however, i did openly express concerns that her chasing poor literature and unproven cures could easily get in the way of actual care that has a large track record of success in treatment of IBD. discussed that these are relatively common illnesses and therefore a LOT of research has been done in this field so while it's totally OK to look at her findings to help possibly improve her overall well being in the situation, it would be dangerous if done at the expense of proven and largely helpful treatment. at the end of the conversation (?30mins a the bedside, ?more) she did seem a little calmer and not grasping at "cures" as the answer nearly as much otherwise as above Subjective Anxious 29 yo F recently diagnosed with ulcerative colitis presenting to hospital with worsening symptoms of cramping abdominal pain, bloody diarrhea, anorexia, nausea. She does not feel much better today and has many questions regarding how to 'cure' her disease process with vitamins. Review of Systems Constitutional: + fatigue and + anorexia; no fever, no chills and no body aches Respiratory: no cough, no dyspnea and no pain on inspiration Cardiovascular: no chest pain and no palpitations Gastrointestinal: + abdominal pain, + bloating, + nausea, + cramping, + diarrhea/loose stools, + constant urge to pass stools and + blood in stools; no vomiting Physical Exam Constitutional: well developed, + thin and cooperative; not ill appearing Respiratory: normal respiratory effort; no respiratory distress Auscultation: no crackles and no rales Cardiovascular: RRR, no murmur, no edema Gastrointestinal (Abdomen): Inspection/Auscultation: abdomen normal to inspection; abdomen not distended Percussion/Palpation: + abdomen tender and abdomen soft; no guarding Psychiatric: Affect: + anxious affect Mood: + anxious mood Insight: + poor insight Results & Data Results & Data ([facility]) Vital Signs (Past 12 Hours) Vital Signs Temp Pulse Pulse Resp BP Pulse Ox 01/22/20 07:21 79 01/22/20 07:15 36.4 C L 76 18 94/62 L 98 01/22/20 03:00 81 18 114/72 96 01/22/20 00:00 94 H 01/21/20 23:11 36.7 C 91 H 20 99/67 L 97 01/21/20 22:31 92 H Laboratory Results WBC 13.87 K/uL (4.8-10.8) H 01/22/20 06:54 RBC 4.61 M/uL (4.2-5.4) 01/22/20 06:54 Hgb 13.5 g/dL (12.0-16.0) D 01/22/20 06:54 Hct 38.2 % (37-47) 01/22/20 06:54 MCV 82.9 fL (80-100) 01/22/20 06:54 MCH 29.3 pg (25-34) 01/22/20 06:54 MCHC 35.3 g/dL (32-36) 01/22/20 06:54 RDW Std Deviation 40.0 fL (36.4-46.3) 01/22/20 06:54 RDW Coeff of Johnathan 13.3 % (11.5-14.5) 01/22/20 06:54 Plt Count 480 K/uL (130-400) H 01/22/20 06:54 MPV 8.5 fL (7.4-10.4) 01/22/20 06:54 Immature Gran % (Auto) 0.4 % 01/22/20 06:54 Neut % (Auto) 82.7 % 01/22/20 06:54 Lymph % (Auto) 11.5 % 01/22/20 06:54 [place] % (Auto) 5.1 % 01/22/20 06:54 Eos % (Auto) 0.2 % 01/22/20 06:54 Baso % (Auto) 0.1 % 01/22/20 06:54 Neut # (Auto) 11.46 K/uL (1.4-6.5) H 01/22/20 06:54 Lymph # (Auto) 1.59 K/uL (1.2-3.4) 01/22/20 06:54 [place] # (Auto) 0.71 K/uL (0.11-0.59) H 01/22/20 06:54 Eos # (Auto) 0.03 K/uL (0-0.5) 01/22/20 06:54 Baso # (Auto) 0.02 K/uL (0-0.2) 01/22/20 06:54 Immature Gran # (Auto) 0.06 K/uL (0.00-0.02) H 01/22/20 06:54 Sodium 138 mmol/L (136-145) D 01/22/20 06:54 Potassium 4.4 mmol/L (3.5-5.1) D 01/22/20 06:54 Chloride 111 mmol/L (98-107) H 01/22/20 06:54 Carbon Dioxide 19 mmol/L (21-32) L 01/22/20 06:54 Anion Gap 8.0 (3-11) 01/22/20 06:54 BUN 2 mg/dl (7-18) L 01/22/20 06:54 Creatinine 0.38 mg/dl (0.6-1.2) L 01/22/20 06:54 Est Cr Clr Drug Dosing 155.8 ml/min 01/22/20 06:54 Est GFR ( Amer) > 150.0 01/22/20 06:54 Est GFR (Non-Af Amer) 141.2 01/22/20 06:54 BUN/Creatinine Ratio 5.5 (10-20) L 01/22/20 06:54 Glucose 117 mg/dl (70-99) H 01/22/20 06:54 Calcium 8.8 mg/dl (8.5-10.1) 01/22/20 06:54 Magnesium 2.3 mg/dl (1.8-2.4) 01/22/20 06:54 Total Bilirubin 0.4 mg/dl (0.2-1) 01/22/20 06:54 AST 11 U/L (15-37) L 01/22/20 06:54 ALT 13 U/L (12-78) 01/22/20 06:54 Alkaline Phosphatase 58 U/L (45-117) 01/22/20 06:54 C-Reactive Protein 10.50 mg/dl (0-0.29) H 01/21/20 13:45 Total Protein 6.9 gm/dl (6.4-8.2) D 01/22/20 06:54 Albumin 2.9 gm/dl (3.4-5.0) L 01/22/20 06:54 Globulin 4.0 gm/dl (2.5-4.0) 01/22/20 06:54 Albumin/Globulin Ratio 0.7 (0.9-2) L 01/22/20 06:54 Lipase 194 U/L (73-393) 01/21/20 13:45 HCG, Qual Negative (Negative) 01/21/20 13:45 Urine Color Yellow 01/21/20 12:45 Urine Appearance Clear (Clear) 01/21/20 12:45 Urine pH 6.0 (4.5-7.5) 01/21/20 12:45 Ur Specific [place] 1.010 (1.000-1.030) 01/21/20 12:45 Urine Protein Negative (Negative) 01/21/20 12:45 Urine Glucose (UA) Negative (Negative) 01/21/20 12:45 Urine Ketones 3+ (Negative) H 01/21/20 12:45 Urine Blood 1+ (Negative) H 01/21/20 12:45 Urine Nitrite Negative (Negative) 01/21/20 12:45 Urine Bilirubin Negative (Negative) 01/21/20 12:45 Urine Urobilinogen Negative (Negative) 01/21/20 12:45 Ur Leukocyte Esterase Negative (Negative) 01/21/20 12:45 Urine RBC 0-4 /hpf (0-4) 01/21/20 12:45 Urine WBC 0-5 /hpf (0-5) 01/21/20 12:45 Ur Epithelial Cells >30 /lpf (0-5) H 01/21/20 12:45 Urine Bacteria 1+ (Negative) H 01/21/20 12:45 Resident Activity Tracking Resident Involvement: Resident Care Provided Care Provided: Adult Hospital Medicine
--- NOTE | 2020-01-22 10:43 | Gastrointestinal Consultation ---
Date of Consultation January 22, 2020 Assessment & Plan (1) Ulcerative pancolitis: (2) Acute lower gastrointestinal bleeding: I had a long discussion with patient about the risks of medical nonadherence to UC treatment which include but not limited to: loss of response to treatment, flare of disease and rare but serious risk of need for colectomy. 1. Continue Solu-Medrol 30 mg IV BID. Will need to complete an 8 week Prednisone taper upon discharge. 2. Resume mesalamine 1600 mg TID. Can continue Lialda (non-formulary) upon discharge. 3. Continue diet advancement as tolerated to a low residue, low lactose diet. 4. Continue supportive care. 5. Can use calcium 1200 mg + vitamin D supplementation while on steroids upon discharge. Thank you for allowing us to participate in the care of this patient. If you have any questions or concerns, please do not hestitate to contact us. Supervising Physician Co-Signing Physician Notes I personally evaluated the patient and agree with the findings as documented by STEPH Hamm Exam: abd: soft, moderate umbilical tenderness, nd recently diagnosed UC pancolitis. continue with solumedrol IV while inpatient, prednisone taper for 8 weeks as an outpatient. will likely need dual therapy with 6MP and Remicade in the near future to achieve remission. Will start calcium and vitamin D supplementation at this time as well. History of Present Illness Reason for Consultation: UC flare Requesting Physician: Dr. Lea Attending Physician: Michael Lea MD History of Present Illness Patient is a 29 year-old female with a history of panulcerative colitis and H pylori infection recently diagnosed in December of 2019 admitted with worsening GI symptoms and hypokalemia in the setting of medical nonadherence to therapy. States she was unable to cut the Prednisone in half and therefore completed the course of treatment in 4 weeks rather than the prescribed 8 week course of treatment. She states she has been using the oral mesalamine, however. She has remained on Flagyl and therefore did not complete triple therapy as prescribed as well. In regard to symptoms, she reports frequent and urgent liquid/bloody stools which occur postprandially and every 2 hours on average. There is associated moderate, sharp abdominal pains diffusely as well as cramping. She denies eye pain/redness but does endorse left knee arthralgias. No lower extremity edema. No nausea or vomiting. Has been placed on Solu-Medrol 60 mg daily in divided dosing. Tolerating a full liquid diet. Allergies Allergy/AdvReac Type Severity Reaction Status Date / Time Penicillins Allergy Mild Rash Verified 01/21/20 13:55 Home Medications Home Medications Medication Instructions Recorded Confirmed Type Lialda 1.2 gram tablet,delayed 2.4 gm PO BID #120 tab NS 12/25/19 01/21/20 Rx release prednisone 10 mg tablet See Rx Instructions .ROUTE 01/06/20 01/21/20 Rx .COMPLEX #126 tab lansoprazole 30 mg PO QAM 01/21/20 01/21/20 History ondansetron HCl [Zofran] 4 mg PO Q6H PRN #20 tab 01/21/20 Rx prednisone 10 mg PO DAILY #11 tab 01/21/20 Rx prenat.vits,jack,awv-ncax-jilfp 1 tab PO Q3D 01/21/20 01/21/20 History [ #2] Patient History Medical History No significant past medical history Rectal bleeding reason for colonoscopy Surgical History History of wisdom tooth extraction Family History Family/Other No problems noted. Grandfather (Paternal) Family history of diabetes mellitus Other No family history of adverse response to anesthesia Denies family history of Crohn's disease Colorectal cancer Ulcerative colitis Social History Smoking Status: Never smoker Second Hand Exposure: No; Hx Alcohol Use: No Hx Substance Use: No Preferred Language: Mandarin [place] Communication Ability: Impaired Shop Lead Required: No Beliefs That Will Affect Care: None marital status: Current Living Situation: Spouse Feels Safe at Home: Yes Safety Concerns: Feels Safe At This Time Review of Systems Review of Systems: All systems reviewed & are unremarkable except as noted in HPI & below Physical Exam Constitutional: WD/WN, vitals as above Eyes: EOM intact bilaterally Neck: normal appearance Respiratory: normal respiratory effort, lungs clear to auscultation Cardiovascular: Rate/Rhythm: regular rate and regular rhythm Heart Sounds: no gallop and no murmur Gastrointestinal (Abdomen): Inspection/Auscultation: + hyperactive bowel sounds Percussion/Palpation: + abdomen tender (diffusely) and abdomen soft Musculoskeletal: Extremities: no cyanosis no lower extremity edema Skin: no rashes, warm and dry Neurologic: moves all extremities Psychiatric: A+Ox3, euthymic affect Results & Data ([facility]) Vital Signs (Past 12 Hours) Vital Signs Temp Pulse Pulse Resp BP Pulse Ox 01/22/20 07:21 79 01/22/20 07:15 36.4 C L 76 18 94/62 L 98 01/22/20 03:00 81 18 114/72 96 01/22/20 00:00 94 H 01/21/20 23:11 36.7 C 91 H 20 99/67 L 97 Laboratory Results Abnormal lab results 01/21/20 01/21/20 01/21/20 Range/Units 12:45 13:45 13:45 WBC 14.35 H (4.8-10.8) K/uL RBC 5.69 H (4.2-5.4) M/uL Hgb 16.9 H (12.0-16.0) g/dL MCHC 36.3 H (32-36) g/dL Plt Count 492 H (130-400) K/uL Neut # (Auto) 8.46 H (1.4-6.5) K/uL [place] # (Auto) 2.32 H (0.11-0.59) K/uL Eos # (Auto) 0.83 H (0-0.5) K/uL Immature Gran # (Auto) 0.04 H (0.00-0.02) K/uL Sodium 131 L (136-145) mmol/L Potassium 3.0 L (3.5-5.1) mmol/L Chloride (98-107) mmol/L Carbon Dioxide (21-32) mmol/L BUN 3 L (7-18) mg/dl Creatinine (0.6-1.2) mg/dl BUN/Creatinine Ratio 4.7 L (10-20) Glucose 101 H (70-99) mg/dl AST (15-37) U/L C-Reactive Protein (0-0.29) mg/dl Total Protein 8.9 H (6.4-8.2) gm/dl Albumin (3.4-5.0) gm/dl Globulin 5.0 H (2.5-4.0) gm/dl Albumin/Globulin Ratio 0.8 L (0.9-2) Urine Ketones 3+ H (Negative) Urine Blood 1+ H (Negative) Ur Epithelial Cells >30 H (0-5) /lpf Urine Bacteria 1+ H (Negative) 01/21/20 01/22/20 01/22/20 Range/Units 13:45 06:54 06:54 WBC 13.87 H (4.8-10.8) K/uL RBC (4.2-5.4) M/uL Hgb (12.0-16.0) g/dL MCHC (32-36) g/dL Plt Count 480 H (130-400) K/uL Neut # (Auto) 11.46 H (1.4-6.5) K/uL [place] # (Auto) 0.71 H (0.11-0.59) K/uL Eos # (Auto) (0-0.5) K/uL Immature Gran # (Auto) 0.06 H (0.00-0.02) K/uL Sodium (136-145) mmol/L Potassium (3.5-5.1) mmol/L Chloride 111 H (98-107) mmol/L Carbon Dioxide 19 L (21-32) mmol/L BUN 2 L (7-18) mg/dl Creatinine 0.38 L (0.6-1.2) mg/dl BUN/Creatinine Ratio 5.5 L (10-20) Glucose 117 H (70-99) mg/dl AST 11 L (15-37) U/L C-Reactive Protein 10.50 H (0-0.29) mg/dl Total Protein (6.4-8.2) gm/dl Albumin 2.9 L (3.4-5.0) gm/dl Globulin (2.5-4.0) gm/dl Albumin/Globulin Ratio 0.7 L (0.9-2) Urine Ketones (Negative) Urine Blood (Negative) Ur Epithelial Cells (0-5) /lpf Urine Bacteria (Negative) PG Care Time/CCT Total # of Minutes Spent Total Time Spent with Patient: Total time spent is greater than 50% in coordination of care (as documented) at patient's floor/unit and/or counseling patient: Coding Level of Care Code 80336 Inpt Consult Level 4 Diagnoses Ulcerative pancolitis K51.00 Acute lower gastrointestinal bleeding K92.2
[2020-01-22] MEDS: MESALAMINE 800 MG TABCR PO SCH ×2 (13:48→20:15)
--- NOTE | 2020-01-22 17:58 | Billing Data ---
Date of Service January 22, 2020 Coding Level of Care Code 55815 Subseq Obs Care Lvl 3
[2020-01-22] MEDS: CALCIUM 600MG + VIT D 400 IU TAB PO SCH (20:15)
[2020-01-23] MEDS: FAMOTIDINE 20 MG in SYRINGE 3 ML IV PRN ×2 (05:15→20:58)
[2020-01-23 07:56] LABS: Basophils # (auto) 0.05 K/uL (0-0.2); Basophils % (auto) 0.4 %; Eosinophils # (auto) 0.14 K/uL (0-0.5); Hematocrit (blood only) 36.3 % (37-47); Hemoglobin 12.4 g/dL (12.0-16.0); Immature Granulocytes # (auto) 0.09 K/uL (0.00-0.02); Immature Granulocytes % (auto) 0.6 %; Lymphocytes # (auto) 2.05 K/uL (1.2-3.4); Lymphocytes % (auto) 14.7 %; Mean Corpuscular Hgb Conc 34.2 g/dL (32-36); Mean Platelet Volume 8.5 fL (7.4-10.4); Monocytes # (auto) 2.11 K/uL (0.11-0.59); Monocytes % (auto) 15.1 %; Neutrophils # (auto) 9.49 K/uL (1.4-6.5); Neutrophils % (auto) 68.2 %; Platelet Count 501 K/uL (130-400); RDW Coefficient of Variation 13.7 % (11.5-14.5); RDW Standard Deviation 42.5 fL (36.4-46.3); Red Blood Count 4.27 M/uL (4.2-5.4); White Blood Count 13.93 K/uL (4.8-10.8)
[2020-01-23 07:59] LABS: Ferritin 84.5 ng/ml (8-388)
[2020-01-23] MEDS: NSS + 20MEQ KCL 20 MEQ/1,000 ML BAG IV SCH ×2 (08:01→16:07)
[2020-01-23] MEDS ORDERED: ONDANSETRON INJ 2 MG/ML 2 ML VIAL IV PRN (08:10)
[2020-01-23] MEDS: MAGNESIUM OXIDE 400 MG TAB PO SCH ×2 (09:02→20:58)
[2020-01-23] MEDS: PANTOprazole 40 MG TAB PO SCH (09:02)
[2020-01-23] MEDS: CALCIUM 600MG + VIT D 400 IU TAB PO SCH ×2 (09:02→20:58)
[2020-01-23] MEDS: methylPREDNISolone 30 MG in SYRINGE 0 ML IV SCH ×2 (09:03→20:58)
--- NOTE | 2020-01-23 09:39 | Hospitalist Progress Note ---
Date of Service January 23, 2020 Assessment & Plan (1) IBD (inflammatory bowel disease): Chencho Jernigan" Is a 29-year-old female recently diagnosed with ulcerative colitis at the beginning of December who presents with increased abdominal pain, inability to tolerate p.o. food/liquid without induction of severe diarrhea, bloody diarrhea after completing a steroid taper more rapidly than initially prescribed. Ulcerative colitis flare, pancolitis Patient with symptoms of bloody diarrhea, abdominal discomfort for 1 month, greatly increased in the last week after stopping a prednisone taper. Does not appear to have properly completed her previous prednisone taper, having done it in 4 weeks instead of 8. GI on board: continue mesalamine 1600 mg TID, IV solu-medrol 30 mg BID, Lialda. Stool culture, C Diff and H. Pylori. Zofran 4 mg IV and ODt PRN. - needs to complete 72 hours of complete steroid treatment IV prior to discharge - will colton need remicaide or 6 MP after hospital stay for disease management - Ca 1200 mg + Vit D supplementation at discharge - advance diet as tolerated Hypokalemia In the setting of increased diarrhea and pancolitis IV repletion ordered, magnesium repletion ordered BMP daily IV fluids as below Anxiety - Patient highly anxious regarding acceptance of her disease process as being lifelong/not being able to be cured - frequently gets into thought spirals regarding vitamin supplementation, finding a gene cure/receptor based cure for the disease - 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 physician - spent an extended amount of time at bedside explaining disease process and path to improvement to patient - making some headway with patient's acceptance of disease process. - Follow up with Dr. García for primary care after discharge to continue maintaining anxiety management alongside disease. FEN/GI: NSS + KCl DVT: SCDs, pharmacoprophylaxis contraindicated in the setting of bleeding colitis Dispo: Med/Tele COde: Full Code (2) Ulcerative pancolitis: (3) Acute lower gastrointestinal bleeding: (4) Helicobacter pylori (H. pylori) infection: (5) Encounter for laboratory testing for COVID-19 virus: (6) Abdominal pain, bilateral lower quadrant: Admission and Anticipated Discharge Date Admission Date: January 21, 2020 Supervising Physician Co-Signing Physician Notes I personally examined the patient and verified all jacob points of history and exam, discussed case, and agree with decision making with Dr García. still anxious but fixates less on peripheral details or irrational thinking - however does ask if she could have worms causing this. vitals noted nad heent nc at mmm breathing unlabored no accessory muscles good effort skin no rashes no pallor or icterus neuro no focal deficits, pleasant but anxious easier to keep focused today, somewhat more fatigued UC flare -continue steroids -with fever add abx anxiety -strongly suspect pressured speech/fixation on minerals/gene-expression/etc is really more manifest of a combination of anxiety over a chronic dx and how she's been feeling, combined with a degree of denial in the face of having just been labeled with a chronic disease in the last month or so --> seems to be making progress in this respect, developing rapport is helping Subjective In a significant amount of pain and having nausea this morning. Per nursing, denied getting the steroid dosing last night because it would "overdose her" and was too much. Continuing to have diarrhea this morning. Anxiety broke to a peak this morning and patient was able to cry and voice some of her emotions regarding fear and questions about why this is happening to her. I was able to reassure her and get her to agree to her morning medications. Review of Systems Constitutional: + weakness Respiratory: no pain on inspiration and no wheezing Cardiovascular: no chest pain and no edema Gastrointestinal: + abdominal pain, + nausea, + vomiting, + cramping, + diarrhea/loose stools and + blood in stools Physical Exam Constitutional: + ill appearing and + thin; no acute distress Respiratory: normal respiratory effort, lungs clear to auscultation Cardiovascular: RRR, no murmur, no edema Gastrointestinal (Abdomen): Inspection/Auscultation: abdomen normal to inspection; abdomen not distended Percussion/Palpation: + abdomen tender and abdomen soft; no guarding and abdomen not rigid Results & Data Results & Data ([facility]) Vital Signs (Past 12 Hours) Vital Signs Temp Pulse Pulse Resp BP Pulse Ox 01/23/20 06:37 36.4 C L 66 16 96/62 L 98 01/23/20 03:49 36.5 C 69 16 101/64 98 01/22/20 23:00 68 01/22/20 22:12 36.4 C L 66 16 102/68 97 Laboratory Results WBC 13.93 K/uL (4.8-10.8) H 01/23/20 07:00 RBC 4.27 M/uL (4.2-5.4) 01/23/20 07:00 Hgb 12.4 g/dL (12.0-16.0) 01/23/20 07:00 Hct 36.3 % (37-47) L 01/23/20 07:00 MCV 85.0 fL (80-100) 01/23/20 07:00 MCH 29.0 pg (25-34) 01/23/20 07:00 MCHC 34.2 g/dL (32-36) 01/23/20 07:00 RDW Std Deviation 42.5 fL (36.4-46.3) 01/23/20 07:00 RDW Coeff of Johnathan 13.7 % (11.5-14.5) 01/23/20 07:00 Plt Count 501 K/uL (130-400) H 01/23/20 07:00 MPV 8.5 fL (7.4-10.4) 01/23/20 07:00 Immature Gran % (Auto) 0.6 % 01/23/20 07:00 Neut % (Auto) 68.2 % 01/23/20 07:00 Lymph % (Auto) 14.7 % 01/23/20 07:00 [place] % (Auto) 15.1 % 01/23/20 07:00 Eos % (Auto) 1.0 % 01/23/20 07:00 Baso % (Auto) 0.4 % 01/23/20 07:00 Neut # (Auto) 9.49 K/uL (1.4-6.5) H 01/23/20 07:00 Lymph # (Auto) 2.05 K/uL (1.2-3.4) 01/23/20 07:00 [place] # (Auto) 2.11 K/uL (0.11-0.59) H 01/23/20 07:00 Eos # (Auto) 0.14 K/uL (0-0.5) 01/23/20 07:00 Baso # (Auto) 0.05 K/uL (0-0.2) 01/23/20 07:00 Immature Gran # (Auto) 0.09 K/uL (0.00-0.02) H 01/23/20 07:00 Sodium 138 mmol/L (136-145) D 01/22/20 06:54 Potassium 4.4 mmol/L (3.5-5.1) D 01/22/20 06:54 Chloride 111 mmol/L (98-107) H 01/22/20 06:54 Carbon Dioxide 19 mmol/L (21-32) L 01/22/20 06:54 Anion Gap 8.0 (3-11) 01/22/20 06:54 BUN 2 mg/dl (7-18) L 01/22/20 06:54 Creatinine 0.38 mg/dl (0.6-1.2) L 01/22/20 06:54 Est Cr Clr Drug Dosing 155.8 ml/min 01/22/20 06:54 Est GFR ( Amer) > 150.0 01/22/20 06:54 Est GFR (Non-Af Amer) 141.2 01/22/20 06:54 BUN/Creatinine Ratio 5.5 (10-20) L 01/22/20 06:54 Glucose 117 mg/dl (70-99) H 01/22/20 06:54 Calcium 8.8 mg/dl (8.5-10.1) 01/22/20 06:54 Magnesium 2.3 mg/dl (1.8-2.4) 01/22/20 06:54 Iron 39 mcg/dl (35-150) 01/23/20 07:00 Transferrin 173 mg/dl (200-360) L 01/23/20 07:00 Transferrin % Sat 16 % (15-50) 01/23/20 07:00 Ferritin 84.5 ng/ml (8-388) 01/23/20 07:00 Total Bilirubin 0.4 mg/dl (0.2-1) 01/22/20 06:54 AST 11 U/L (15-37) L 01/22/20 06:54 ALT 13 U/L (12-78) 01/22/20 06:54 Alkaline Phosphatase 58 U/L (45-117) 01/22/20 06:54 C-Reactive Protein 10.50 mg/dl (0-0.29) H 01/21/20 13:45 Total Protein 6.9 gm/dl (6.4-8.2) D 01/22/20 06:54 Albumin 2.9 gm/dl (3.4-5.0) L 01/22/20 06:54 Globulin 4.0 gm/dl (2.5-4.0) 01/22/20 06:54 Albumin/Globulin Ratio 0.7 (0.9-2) L 01/22/20 06:54 Lipase 194 U/L (73-393) 01/21/20 13:45 Vitamin B12 1271 pg/ml (211-911) H 01/23/20 07:00 25-OH Vitamin D Total 30.8 ng/ml (30-100) 01/23/20 07:00 HCG, Qual Negative (Negative) 01/21/20 13:45 Urine Color Yellow 01/21/20 12:45 Urine Appearance Clear (Clear) 01/21/20 12:45 Urine pH 6.0 (4.5-7.5) 01/21/20 12:45 Ur Specific [place] 1.010 (1.000-1.030) 01/21/20 12:45 Urine Protein Negative (Negative) 01/21/20 12:45 Urine Glucose (UA) Negative (Negative) 01/21/20 12:45 Urine Ketones 3+ (Negative) H 01/21/20 12:45 Urine Blood 1+ (Negative) H 01/21/20 12:45 Urine Nitrite Negative (Negative) 01/21/20 12:45 Urine Bilirubin Negative (Negative) 01/21/20 12:45 Urine Urobilinogen Negative (Negative) 01/21/20 12:45 Ur Leukocyte Esterase Negative (Negative) 01/21/20 12:45 Urine RBC 0-4 /hpf (0-4) 01/21/20 12:45 Urine WBC 0-5 /hpf (0-5) 01/21/20 12:45 Ur Epithelial Cells >30 /lpf (0-5) H 01/21/20 12:45 Urine Bacteria 1+ (Negative) H 01/21/20 12:45 Resident Activity Tracking Resident Involvement: Resident Care Provided Care Provided: Adult Hospital Medicine
--- NOTE | 2020-01-23 09:57 | Gastroenterology Progress Note ---
Date of Service January 23, 2020 Assessment & Plan (1) Ulcerative pancolitis: (2) Acute lower gastrointestinal bleeding: Again today, I counseled patient about the risks of medical nonadherence to UC treatment which include but not limited to: loss of response to treatment, flare of disease and rare but serious risk of need for colectomy. 1. Continue Solu-Medrol 30 mg IV BID. Will need to complete an 8 week Prednisone taper upon discharge. 2. Continue mesalamine 1600 mg TID. Can continue Lialda (non-formulary) upon discharge. 3. Stool culture, C Diff and repeat H pylori as diagnosed ~6 weeks ago and new onset of n/v. 4. Zofran 4mg IV now. 5. Can use calcium 1200 mg + vitamin D supplementation while on steroids upon discharge. Thank you for allowing us to participate in the care of this patient. If you have any questions or concerns, please do not hesitate to contact us. Admission and Anticipated Discharge Date Admission Date: January 21, 2020 Supervising Physician Co-Signing Physician Notes I personally evaluated the patient and agree with the findings as documented by STEPH Hamm Exam: abd: soft, moderate umbilical/lower quadrant tenderness, nd needs to take her steroids as ordered, zofran prn nausea. if no response after 72 hours of dedicated steroid therapy (without refusing doses, as she has already per nursing), will have to reassess/consider other options. Joseph Simeon MD Gastroenterology Subjective Patient reports feeling poorly today. She is nauseated and having a bilious emesis at the time of evaluation. Per nursing, she refused Solu-Medrol and has been refusing antiemetics. Reports stool frequency did decrease and is now occurring after meals. Abdominal pain is diffuse, but worse in the lower abdomen. Has been applying heat. With heating pad, rates the pain as 4/10 in intensity. Reports bloody and liquid stools. No fevers but she is "cold". +bloating. H&H remains normal. Review of Systems Review of Systems: All systems reviewed & are unremarkable except as noted in HPI & below Physical Exam Constitutional: WD/WN, vitals as above + thin and + lethargic Eyes: EOM intact bilaterally Respiratory: normal respiratory effort, lungs clear to auscultation Cardiovascular: RRR, no murmur, no edema Gastrointestinal (Abdomen): Inspection/Auscultation: + hyperactive bowel sounds Percussion/Palpation: + abdomen tender and abdomen soft Musculoskeletal: Extremities: extremities normal to inspection Skin: no rashes, warm and dry Psychiatric: A+Ox3, euthymic affect Results & Data Results & Data ([facility]) Vital Signs (Past 12 Hours) Vital Signs Temp Pulse Pulse Resp BP Pulse Ox 01/23/20 06:37 36.4 C L 66 16 96/62 L 98 01/23/20 03:49 36.5 C 69 16 101/64 98 01/22/20 23:00 68 01/22/20 22:12 36.4 C L 66 16 102/68 97 Laboratory Results Abnormal lab results 01/23/20 01/23/20 01/23/20 Range/Units 07:00 07:00 07:00 WBC 13.93 H (4.8-10.8) K/uL Hct 36.3 L (37-47) % Plt Count 501 H (130-400) K/uL Neut # (Auto) 9.49 H (1.4-6.5) K/uL [place] # (Auto) 2.11 H (0.11-0.59) K/uL Immature Gran # (Auto) 0.09 H (0.00-0.02) K/uL Transferrin 173 L (200-360) mg/dl Vitamin B12 1271 H (211-911) pg/ml PG Care Time/CCT Total # of Minutes Spent Total Time Spent with Patient: Total time spent is greater than 50% in coordination of care (as documented) at patient's floor/unit and/or counseling patient: Coding Level of Care Code 99901 Subseq Hosp Care Lvl 3 Diagnoses Ulcerative pancolitis K51.00 Acute lower gastrointestinal bleeding K92.2
[2020-01-23] MEDS: MESALAMINE 800 MG TABCR PO SCH ×3 (13:00→20:59)
[2020-01-23] MEDS: ARTIFICIAL TEARS OP OINT 3.5 GM TUBE OP SCH (13:22)
[2020-01-23] MEDS: ACETAMINOPHEN 325 MG TAB PO PRN (16:06)
--- NOTE | 2020-01-23 16:43 | Billing Data ---
Date of Service January 23, 2020 Coding Level of Care Code 82621 Subseq Hosp Care Lvl 3
[2020-01-23] MEDS: cefTRIAXone SODIUM 1,000 MG in DEXTROSE 5% 50 ML IV SCH (17:43)
[2020-01-23] MEDS: metroNIDAZOLE 500 MG/100 ML BAG IV SCH (18:20)
[2020-01-23] MEDS ORDERED: SODIUM CHLORIDE 0.9% 1000ML 250 ML IV ONE (21:25)
[2020-01-24] MEDS: metroNIDAZOLE 500 MG/100 ML BAG IV SCH ×3 (01:38→19:01)
[2020-01-24] MEDS: NSS + 20MEQ KCL 20 MEQ/1,000 ML BAG IV SCH ×2 (04:18→21:09)
[2020-01-24 07:16] LABS: Basophils # (auto) 0.02 K/uL (0-0.2); Basophils % (auto) 0.1 %; Hematocrit (blood only) 37.4 % (37-47); Hemoglobin 13.1 g/dL (12.0-16.0); Immature Granulocytes # (auto) 0.07 K/uL (0.00-0.02); Immature Granulocytes % (auto) 0.5 %; Lymphocytes # (auto) 1.23 K/uL (1.2-3.4); Lymphocytes % (auto) 8.2 %; Mean Corpuscular Hemoglobin 29.2 pg (25-34); Mean Corpuscular Volume 83.5 fL (80-100); Mean Platelet Volume 8.6 fL (7.4-10.4); Monocytes # (auto) 1.67 K/uL (0.11-0.59); Monocytes % (auto) 11.1 %; Neutrophils % (auto) 80.1 %; Platelet Count 500 K/uL (130-400); RDW Coefficient of Variation 13.5 % (11.5-14.5); RDW Standard Deviation 41.1 fL (36.4-46.3); Red Blood Count 4.48 M/uL (4.2-5.4); White Blood Count 15.09 K/uL (4.8-10.8)
--- NOTE | 2020-01-24 07:39 | Hospitalist Progress Note ---
Date of Service January 24, 2020 Assessment & Plan (1) IBD (inflammatory bowel disease): Chencho Jernigan" Is a 29-year-old female recently diagnosed with ulcerative colitis at the beginning of December who presents with increased abdominal pain, inability to tolerate p.o. food/liquid without induction of severe diarrhea, bloody diarrhea after completing a steroid taper more rapidly than initially prescribed. Ulcerative colitis flare, pancolitis GI on board: continue mesalamine 1600 mg TID, IV solu-medrol 30 mg BID, Lialda. Stool culture, C Diff and H. Pylori. Zofran 4 mg IV and ODt PRN. - needs to complete 72 hours of complete steroid treatment IV prior to discharge (01/22 - 01/25) - will likely need remicaide or 6 MP after hospital stay for disease management - Ca 1200 mg + Vit D supplementation at discharge - advance diet as tolerated Hypokalemia: resolved In the setting of increased diarrhea and pancolitis IV repletion ordered, magnesium repletion ordered BMP daily IV fluids as below Anxiety - Patient highly anxious regarding acceptance of her disease process as being lifelong/not being able to be cured - frequently gets into thought spirals regarding vitamin supplementation, finding a gene cure/receptor based cure for the disease - 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 - Follow up with Dr. García for primary care after discharge to continue maintaining anxiety management alongside disease. FEN/GI: NSS + KCl DVT: SCDs, pharmacoprophylaxis contraindicated in the setting of bleeding colitis Dispo: Med/Tele COde: Full Code (2) Ulcerative pancolitis: (3) Acute lower gastrointestinal bleeding: (4) Helicobacter pylori (H. pylori) infection: (5) Encounter for laboratory testing for COVID-19 virus: (6) Abdominal pain, bilateral lower quadrant: Admission and Anticipated Discharge Date Admission Date: January 23, 2020 Supervising Physician Co-Signing Physician Notes I personally examined the patient and verified all jacob points of history and exam, discussed case, and agree with decision making with Dr García. feeling better less diarrhea all green no blood. vitals noted nad heent nc at mmm breathing unlabored no accessory muscles good effort skin no rashes no pallor or icterus neuro no focal deficits, pleasant and less anxious UC flare -continue steroids -with fever added abx -improving anxiety -strongly suspect pressured speech/fixation on minerals/gene-expression/etc is really more manifest of a combination of anxiety over a chronic dx and how she's been feeling, combined with a degree of denial in the face of having just been labeled with a chronic disease in the last month or so --> seems to be making progress in this respect, developing rapport is helping; hopefully this will help w treatment adherence and her overall outcome as well. Subjective Feeling better but more tired today. diarrhea ongoing overnight and into AM, however last two episodes were nonbloody. Review of Systems Constitutional: + fever, + sweats and + fatigue Gastrointestinal: + nausea, + diarrhea/loose stools and + blood in stools; no vomiting Physical Exam Constitutional: + ill appearing, + thin and + frail appearing Gastrointestinal (Abdomen): Inspection/Auscultation: + hyperactive bowel sounds Percussion/Palpation: + abdomen tender and abdomen soft; no guarding Results & Data Results & Data ([facility]) Vital Signs (Past 12 Hours) Vital Signs Temp Pulse Resp BP BP Pulse Ox 01/24/20 07:14 36.8 C 92 H 16 104/72 98 01/24/20 01:11 37.5 C 92 H 106/68 101/72 01/23/20 23:36 37.5 C 102 H 14 94/58 L 97 Laboratory Results WBC 15.09 K/uL (4.8-10.8) H 01/24/20 06:34 RBC 4.48 M/uL (4.2-5.4) 01/24/20 06:34 Hgb 13.1 g/dL (12.0-16.0) 01/24/20 06:34 Hct 37.4 % (37-47) 01/24/20 06:34 MCV 83.5 fL (80-100) 01/24/20 06:34 MCH 29.2 pg (25-34) 01/24/20 06:34 MCHC 35.0 g/dL (32-36) 01/24/20 06:34 RDW Std Deviation 41.1 fL (36.4-46.3) 01/24/20 06:34 RDW Coeff of Johnathan 13.5 % (11.5-14.5) 01/24/20 06:34 Plt Count 500 K/uL (130-400) H 01/24/20 06:34 MPV 8.6 fL (7.4-10.4) 01/24/20 06:34 Immature Gran % (Auto) 0.5 % 01/24/20 06:34 Neut % (Auto) 80.1 % 01/24/20 06:34 Lymph % (Auto) 8.2 % 01/24/20 06:34 [place] % (Auto) 11.1 % 01/24/20 06:34 Eos % (Auto) 0.0 % 01/24/20 06:34 Baso % (Auto) 0.1 % 01/24/20 06:34 Neut # (Auto) 12.10 K/uL (1.4-6.5) H 01/24/20 06:34 Lymph # (Auto) 1.23 K/uL (1.2-3.4) 01/24/20 06:34 [place] # (Auto) 1.67 K/uL (0.11-0.59) H 01/24/20 06:34 Eos # (Auto) 0.00 K/uL (0-0.5) 01/24/20 06:34 Baso # (Auto) 0.02 K/uL (0-0.2) 01/24/20 06:34 Immature Gran # (Auto) 0.07 K/uL (0.00-0.02) H 01/24/20 06:34 Sodium 138 mmol/L (136-145) 01/24/20 06:34 Potassium 3.4 mmol/L (3.5-5.1) L D 01/24/20 06:34 Chloride 107 mmol/L (98-107) 01/24/20 06:34 Carbon Dioxide 25 mmol/L (21-32) 01/24/20 06:34 Anion Gap 6.0 (3-11) 01/24/20 06:34 BUN 3 mg/dl (7-18) L 01/24/20 06:34 Creatinine 0.40 mg/dl (0.6-1.2) L 01/24/20 06:34 Est Cr Clr Drug Dosing 157.3 ml/min 01/24/20 06:34 Est GFR ( Amer) > 150.0 01/24/20 06:34 Est GFR (Non-Af Amer) 138.8 01/24/20 06:34 BUN/Creatinine Ratio 8.2 (10-20) L 01/24/20 06:34 Glucose 114 mg/dl (70-99) H 01/24/20 06:34 Calcium 8.7 mg/dl (8.5-10.1) 01/24/20 06:34 Magnesium 2.3 mg/dl (1.8-2.4) 01/22/20 06:54 Iron 39 mcg/dl (35-150) 01/23/20 07:00 Transferrin 173 mg/dl (200-360) L 01/23/20 07:00 Transferrin % Sat 16 % (15-50) 01/23/20 07:00 Ferritin 84.5 ng/ml (8-388) 01/23/20 07:00 Total Bilirubin 0.4 mg/dl (0.2-1) 01/22/20 06:54 AST 11 U/L (15-37) L 01/22/20 06:54 ALT 13 U/L (12-78) 01/22/20 06:54 Alkaline Phosphatase 58 U/L (45-117) 01/22/20 06:54 C-Reactive Protein 10.50 mg/dl (0-0.29) H 01/21/20 13:45 Total Protein 6.9 gm/dl (6.4-8.2) D 01/22/20 06:54 Albumin 2.9 gm/dl (3.4-5.0) L 01/22/20 06:54 Globulin 4.0 gm/dl (2.5-4.0) 01/22/20 06:54 Albumin/Globulin Ratio 0.7 (0.9-2) L 01/22/20 06:54 Lipase 194 U/L (73-393) 01/21/20 13:45 Vitamin B12 1271 pg/ml (211-911) H 01/23/20 07:00 25-OH Vitamin D Total 30.8 ng/ml (30-100) 01/23/20 07:00 HCG, Qual Negative (Negative) 01/21/20 13:45 Urine Color Yellow 08/18/20 12:45 Urine Appearance Clear (Clear) 01/21/20 12:45 Urine pH 6.0 (4.5-7.5) 01/21/20 12:45 Ur Specific [place] 1.010 (1.000-1.030) 01/21/20 12:45 Urine Protein Negative (Negative) 01/21/20 12:45 Urine Glucose (UA) Negative (Negative) 01/21/20 12:45 Urine Ketones 3+ (Negative) H 01/21/20 12:45 Urine Blood 1+ (Negative) H 01/21/20 12:45 Urine Nitrite Negative (Negative) 01/21/20 12:45 Urine Bilirubin Negative (Negative) 01/21/20 12:45 Urine Urobilinogen Negative (Negative) 01/21/20 12:45 Ur Leukocyte Esterase Negative (Negative) 01/21/20 12:45 Urine RBC 0-4 /hpf (0-4) 01/21/20 12:45 Urine WBC 0-5 /hpf (0-5) 01/21/20 12:45 Ur Epithelial Cells >30 /lpf (0-5) H 01/21/20 12:45 Urine Bacteria 1+ (Negative) H 01/21/20 12:45 Stl C. diff Tox B Gene Negative Cdiff Gene (Neg) 01/23/20 16:30 Resident Activity Tracking Resident Involvement: Resident Care Provided Care Provided: Adult Hospital Medicine
[2020-01-24 07:44] LABS: BUN Creatinine Ratio 8.2 (10-20); Blood Urea Nitrogen 3 mg/dl (7-18); Calcium 8.7 mg/dl (8.5-10.1); Carbon Dioxide 25 mmol/L (21-32); Chloride 107 mmol/L (98-107); Creatinine Clr Calc Pharmacy 157.3 ml/min; Est GFR (African American) > 150.0; Est GFR (Non-African American) 138.8; Glucose 114 mg/dl (70-99); Potassium 3.4 mmol/L (3.5-5.1); Sodium 138 mmol/L (136-145)
[2020-01-24] MEDS: MESALAMINE 800 MG TABCR PO SCH ×4 (09:19→21:09)
[2020-01-24] MEDS: PANTOprazole 40 MG TAB PO SCH (09:20)
[2020-01-24] MEDS: CALCIUM 600MG + VIT D 400 IU TAB PO SCH ×2 (09:20→21:10)
[2020-01-24] MEDS: MAGNESIUM OXIDE 400 MG TAB PO SCH ×2 (09:20→21:16)
[2020-01-24] MEDS: ARTIFICIAL TEARS OP OINT 3.5 GM TUBE OP SCH (09:21)
[2020-01-24] MEDS: methylPREDNISolone 30 MG in SYRINGE 0 ML IV SCH ×2 (09:22→21:09)
--- NOTE | 2020-01-24 09:28 | Gastroenterology Progress Note ---
Date of Service January 24, 2020 Assessment & Plan (1) Acute lower gastrointestinal bleeding: -Continue IV Solumedrol 30 mg BID for a total of 72 hours. Patient has been educated regarding risks of non-compliance with this recommendation. She will require an 8 week Prednisone taper upon discharge. -Continue Mesalamine 1600 mg TID while hospitalized. Can continue Lialda (home med) on d/c. -Calcium & vitamin D supplement while on high dose steroid therapy -Will need outpatient follow-up for further discussion of escalation to biologic therapy. Thank you for allowing us to participate in the care of this patient. If you have any questions or concerns, please do not hesitate to contact us. Admission and Anticipated Discharge Date Admission Date: January 23, 2020 Supervising Physician Co-Signing Physician Notes I personally evaluated the patient and agree with the findings as documented by Rylee Duffy, [facility] Exam: abd: soft, moderate tenderness, nausea, nd still nauseous, eating small amounts of food. continue IV solumedrol, zofran prn nausea. will need 8 week steroid taper upon discharge and most likely will need dual therapy with biologic and 6MP in the near future. Subjective Patient is a 29 yo female with ulcerative pancolitis hospitalized after non- compliance with medical therapy as an outpatient. This morning she reports she is feeling better. She notes that while she is still having abdominal pain, rectal bleeding, & loose stool--the frequency is significantly less than previous. She notes that she is not eating much. It has been a challenge getting her to agree to take her steroids. Labs are stable. H/H normal. K 3.4. Review of Systems Constitutional: + fatigue Respiratory: no cough and no dyspnea Cardiovascular: no chest pain Gastrointestinal: + abdominal pain, + diarrhea/loose stools and + blood in stools Physical Exam Constitutional: WD/WN, vitals as above Respiratory: normal respiratory effort, lungs clear to auscultation Cardiovascular: Heart Sounds: + gallop and + murmur Extremities: no edema Gastrointestinal (Abdomen): Inspection/Auscultation: normal bowel sounds Percussion/Palpation: + abdomen tender and abdomen soft Musculoskeletal: Extremities: extremities normal to inspection; no cyanosis Psychiatric: A+Ox3, euthymic affect Results & Data Results & Data ([facility]) Vital Signs (Past 12 Hours) Vital Signs Temp Pulse Resp BP BP Pulse Ox 01/24/20 07:14 36.8 C 92 H 16 104/72 98 01/24/20 01:11 37.5 C 92 H 106/68 101/72 01/23/20 23:36 37.5 C 102 H 14 94/58 L 97 PG Care Time/CCT Total # of Minutes Spent Total Time Spent with Patient: Total time spent is greater than 50% in coordination of care (as documented) at patient's floor/unit and/or counseling patient: Coding Level of Care Code 99928 Subseq Hosp Care Lvl 3 Diagnoses Acute lower gastrointestinal bleeding K92.2
[2020-01-24] MEDS: cefTRIAXone SODIUM 1,000 MG in DEXTROSE 5% 50 ML IV SCH (17:17)
--- NOTE | 2020-01-24 18:06 | Billing Data ---
Date of Service January 24, 2020 Coding Level of Care Code 04699 Subseq Hosp Care Lvl 3
[2020-01-25] MEDS: NSS + 20MEQ KCL 20 MEQ/1,000 ML BAG IV SCH ×2 (01:50→09:05)
[2020-01-25] MEDS: metroNIDAZOLE 500 MG/100 ML BAG IV SCH ×3 (01:51→17:41)
[2020-01-25 05:59] LABS: Basophils # (auto) 0.02 K/uL (0-0.2); Basophils % (auto) 0.1 %; Eosinophils # (auto) 0.02 K/uL (0-0.5); Eosinophils % (auto) 0.1 %; Hematocrit (blood only) 36.9 % (37-47); Hemoglobin 12.4 g/dL (12.0-16.0); Immature Granulocytes # (auto) 0.34 K/uL (0.00-0.02); Immature Granulocytes % (auto) 1.8 %; Lymphocytes # (auto) 1.81 K/uL (1.2-3.4); Lymphocytes % (auto) 9.4 %; Mean Corpuscular Hemoglobin 28.8 pg (25-34); Mean Corpuscular Hgb Conc 33.6 g/dL (32-36); Mean Corpuscular Volume 85.6 fL (80-100); Mean Platelet Volume 8.3 fL (7.4-10.4); Monocytes # (auto) 2.09 K/uL (0.11-0.59); Monocytes % (auto) 10.9 %; Neutrophils # (auto) 14.93 K/uL (1.4-6.5); Neutrophils % (auto) 77.7 %; Platelet Count 488 K/uL (130-400); RDW Coefficient of Variation 13.7 % (11.5-14.5); RDW Standard Deviation 43.2 fL (36.4-46.3); Red Blood Count 4.31 M/uL (4.2-5.4); White Blood Count 19.21 K/uL (4.8-10.8)
[2020-01-25 06:23] LABS: BUN Creatinine Ratio 11.8 (10-20); Blood Urea Nitrogen 4 mg/dl (7-18); Calcium 8.9 mg/dl (8.5-10.1); Carbon Dioxide 26 mmol/L (21-32); Chloride 108 mmol/L (98-107); Creatinine Clr Calc Pharmacy 174.8 ml/min; Est GFR (African American) > 150.0; Est GFR (Non-African American) 143.7; Glucose 118 mg/dl (70-99); Potassium 3.8 mmol/L (3.5-5.1); Sodium 139 mmol/L (136-145)
--- NOTE | 2020-01-25 08:16 | Hospitalist Progress Note ---
Date of Service January 25, 2020 Assessment & Plan (1) IBD (inflammatory bowel disease): Chencho Jernigan" Is a 29-year-old female recently diagnosed with ulcerative colitis at the beginning of December who presents with increased abdominal pain, inability to tolerate p.o. food/liquid without induction of severe diarrhea, bloody diarrhea after completing a steroid taper more rapidly than initially prescribed. Ulcerative colitis flare, pancolitis GI on board: continue mesalamine 1600 mg TID, IV solu-medrol 30 mg BID, Lialda. Stool culture, C Diff and H. Pylori. Zofran 4 mg IV and ODt PRN. - IV steroids complete tonight, transition to PO 01/26 - will likely need remicaide or 6 MP after hospital stay for disease management - Ca 1200 mg + Vit D supplementation at discharge - advance diet as tolerated Epigastric Pain - high risk for stress ulcers given steroid treatment and low appetite/intake - omeprazole 40 mg PO daily --> BID dosing - famotidine IV BID - sucralfate QID Hypokalemia: resolved BMP daily IV fluids as below Anxiety - Making progress towards accepting disease state. Still highly anxious, possibly having panic attacks? 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 - Follow up with Dr. García for primary care after discharge to continue maintaining anxiety management alongside disease. FEN/GI: 1/2 NS + 20 KCL @ 100 ml/hr DVT: SCDs, pharmacoprophylaxis contraindicated in the setting of bleeding colitis Dispo: Med/surg COde: Full Code (2) Ulcerative pancolitis: (3) Acute lower gastrointestinal bleeding: (4) Helicobacter pylori (H. pylori) infection: (5) Encounter for laboratory testing for COVID-19 virus: (6) Abdominal pain, bilateral lower quadrant: Admission and Anticipated Discharge Date Admission Date: January 23, 2020 Supervising Physician Co-Signing Physician Notes I personally examined the patient and verified all jacob points of history and exam, discussed case, and agree with decision making with Dr García. less diarrhea, some crampy lower pain. earlier was having dizziness and nausea even sitting up. pain after eating even just a little bit. vitals noted nad heent nc at mmm breathing unlabored no accessory muscles good effort skin no rashes no pallor or icterus neuro no focal deficits, sitting up her pulse stays the same in rate but does diminish in intensity, gets notably distressed. quite tender epigastric. later (after fluids would have been given - was in hallway without appearance of dizziness) UC flare -continue steroids -with fever added abx - continue epigastric pain -worse after food -escalate acid suppression, add carafate. if doesn't improve may need to consider EGD as well orthostatic dizziness -while UC flare does seem to be improving, she did lose a lot of volume in diarrhea, and her PO intake has not yet picked up to catch her up - likely dry. fluid bolus, follow anxiety -doing better with reassurrance, explanations, time to process dx and plans, etc Subjective Concerned about some dizziness and shortness of breath that she experiences when sitting up in bed. was able to start eating solid food last night but this morning was only able to drink ~400 ml of milk and orange juice before experiencing stomach pain. Review of Systems Respiratory: + pain on inspiration; no cough Gastrointestinal: + abdominal pain, + early satiety, + nausea, + diarrhea/loose stools and + blood in stools; no vomiting Neurologic: + dizziness Physical Exam Constitutional: WD/WN, vitals as above Respiratory: normal respiratory effort, lungs clear to auscultation Cardiovascular: RRR, no murmur, no edema Gastrointestinal (Abdomen): Inspection/Auscultation: abdomen normal to inspection and normal bowel sounds; abdomen not distended Percussion/Palpation: + abdomen tender (epigastric, RLQ) and abdomen soft Skin: no rashes, warm and dry Results & Data Results & Data ([facility]) Vital Signs (Past 12 Hours) Vital Signs Temp Pulse Resp BP BP Pulse Ox 01/25/20 07:45 36.8 C 68 16 99/63 L 99 01/24/20 23:23 36.5 C 83 16 107/72 97 Laboratory Results WBC 19.21 K/uL (4.8-10.8) H 01/25/20 05:26 RBC 4.31 M/uL (4.2-5.4) 01/25/20 05:26 Hgb 12.4 g/dL (12.0-16.0) 01/25/20 05:26 Hct 36.9 % (37-47) L 01/25/20 05:26 MCV 85.6 fL (80-100) 01/25/20 05:26 MCH 28.8 pg (25-34) 01/25/20 05:26 MCHC 33.6 g/dL (32-36) 01/25/20 05:26 RDW Std Deviation 43.2 fL (36.4-46.3) 01/25/20 05:26 RDW Coeff of Johnathan 13.7 % (11.5-14.5) 01/25/20 05:26 Plt Count 488 K/uL (130-400) H 01/25/20 05:26 MPV 8.3 fL (7.4-10.4) 01/25/20 05:26 Immature Gran % (Auto) 1.8 % 01/25/20 05:26 Neut % (Auto) 77.7 % 01/25/20 05:26 Lymph % (Auto) 9.4 % 01/25/20 05:26 [place] % (Auto) 10.9 % 01/25/20 05:26 Eos % (Auto) 0.1 % 01/25/20 05:26 Baso % (Auto) 0.1 % 01/25/20 05:26 Neut # (Auto) 14.93 K/uL (1.4-6.5) H 01/25/20 05:26 Lymph # (Auto) 1.81 K/uL (1.2-3.4) 01/25/20 05:26 [place] # (Auto) 2.09 K/uL (0.11-0.59) H 01/25/20 05:26 Eos # (Auto) 0.02 K/uL (0-0.5) 01/25/20 05:26 Baso # (Auto) 0.02 K/uL (0-0.2) 01/25/20 05:26 Immature Gran # (Auto) 0.34 K/uL (0.00-0.02) H 01/25/20 05:26 Sodium 139 mmol/L (136-145) 01/25/20 05:26 Potassium 3.8 mmol/L (3.5-5.1) 01/25/20 05:26 Chloride 108 mmol/L (98-107) H 01/25/20 05:26 Carbon Dioxide 26 mmol/L (21-32) 01/25/20 05:26 Anion Gap 5.0 (3-11) 01/25/20 05:26 BUN 4 mg/dl (7-18) L 01/25/20 05:26 Creatinine 0.36 mg/dl (0.6-1.2) L 01/25/20 05:26 Est Cr Clr Drug Dosing 174.8 ml/min 01/25/20 05:26 Est GFR ( Amer) > 150.0 01/25/20 05:26 Est GFR (Non-Af Amer) 143.7 01/25/20 05:26 BUN/Creatinine Ratio 11.8 (10-20) 01/25/20 05:26 Glucose 118 mg/dl (70-99) H 01/25/20 05:26 Calcium 8.9 mg/dl (8.5-10.1) 01/25/20 05:26 Magnesium 2.3 mg/dl (1.8-2.4) 01/22/20 06:54 Iron 39 mcg/dl (35-150) 01/23/20 07:00 Transferrin 173 mg/dl (200-360) L 01/23/20 07:00 Transferrin % Sat 16 % (15-50) 01/23/20 07:00 Ferritin 84.5 ng/ml (8-388) 01/23/20 07:00 Total Bilirubin 0.4 mg/dl (0.2-1) 01/22/20 06:54 AST 11 U/L (15-37) L 01/22/20 06:54 ALT 13 U/L (12-78) 01/22/20 06:54 Alkaline Phosphatase 58 U/L (45-117) 01/22/20 06:54 C-Reactive Protein 10.50 mg/dl (0-0.29) H 01/21/20 13:45 Total Protein 6.9 gm/dl (6.4-8.2) D 01/22/20 06:54 Albumin 2.9 gm/dl (3.4-5.0) L 01/22/20 06:54 Globulin 4.0 gm/dl (2.5-4.0) 01/22/20 06:54 Albumin/Globulin Ratio 0.7 (0.9-2) L 01/22/20 06:54 Lipase 194 U/L (73-393) 01/21/20 13:45 Vitamin B12 1271 pg/ml (211-911) H 01/23/20 07:00 25-OH Vitamin D Total 30.8 ng/ml (30-100) 01/23/20 07:00 HCG, Qual Negative (Negative) 01/21/20 13:45 Urine Color Yellow 01/21/20 12:45 Urine Appearance Clear (Clear) 01/21/20 12:45 Urine pH 6.0 (4.5-7.5) 01/21/20 12:45 Ur Specific [place] 1.010 (1.000-1.030) 01/21/20 12:45 Urine Protein Negative (Negative) 01/21/20 12:45 Urine Glucose (UA) Negative (Negative) 01/21/20 12:45 Urine Ketones 3+ (Negative) H 01/21/20 12:45 Urine Blood 1+ (Negative) H 01/21/20 12:45 Urine Nitrite Negative (Negative) 01/21/20 12:45 Urine Bilirubin Negative (Negative) 01/21/20 12:45 Urine Urobilinogen Negative (Negative) 01/21/20 12:45 Ur Leukocyte Esterase Negative (Negative) 01/21/20 12:45 Urine RBC 0-4 /hpf (0-4) 01/21/20 12:45 Urine WBC 0-5 /hpf (0-5) 01/21/20 12:45 Ur Epithelial Cells >30 /lpf (0-5) H 01/21/20 12:45 Urine Bacteria 1+ (Negative) H 01/21/20 12:45 Stl C. diff Tox B Gene Negative Cdiff Gene (Neg) 01/23/20 16:30 Resident Activity Tracking Resident Involvement: Resident Care Provided Care Provided: Adult [facility] Medicine
[2020-01-25] MEDS: PANTOprazole 40 MG TAB PO SCH ×2 (09:01→20:32)
[2020-01-25] MEDS: MESALAMINE 800 MG TABCR PO SCH ×3 (09:01→20:32)
[2020-01-25] MEDS: MAGNESIUM OXIDE 400 MG TAB PO SCH ×2 (09:01→20:32)
[2020-01-25] MEDS: CALCIUM 600MG + VIT D 400 IU TAB PO SCH ×2 (09:02→20:32)
[2020-01-25] MEDS: ARTIFICIAL TEARS OP OINT 3.5 GM TUBE OP SCH (09:02)
[2020-01-25] MEDS: methylPREDNISolone 30 MG in SYRINGE 0 ML IV SCH ×2 (09:03→20:32)
[2020-01-25] MEDS: SODIUM CHLORIDE 0.9% 500 ML IV SCH ×2 (13:36→15:46)
--- NOTE | 2020-01-25 14:34 | Gastroenterology Progress Note ---
Date of Service January 25, 2020 Assessment & Plan (1) Ulcerative pancolitis: Continue Solumedrol 30 mg IV BID Will need steroid taper upon discharge starting at 40 mg daily and decrease by 5 mg weekly, for total 8 week course Continue Mesalamine 1600 mg by mouth TID Stressed the importance of compliance with medications (2) Helicobacter pylori (H. pylori) infection: H. pylori stool Ag pending. If positive, will need triple drug therapy, as she did not take this appropriately the last time. Continue supportive care. Admission and Anticipated Discharge Date Admission Date: January 23, 2020 Subjective Feeling slightly better today. Diet slowly advancing. Total of 4 BM's since midnight, still liquid, with blood. She denies fevers, chills, nausea, or vomiting. She has no further complaints. Review of Systems Review of Systems: All systems reviewed & are unremarkable except as noted in HPI & below Physical Exam Constitutional: WD/WN, vitals as above Respiratory: normal respiratory effort, lungs clear to auscultation Cardiovascular: RRR, no murmur, no edema Gastrointestinal (Abdomen): Inspection/Auscultation: abdomen normal to inspection and normal bowel sounds; abdomen not distended Percussion/Palpation: + abdomen tender and abdomen soft Skin: no rashes, warm and dry Results & Data Results & Data ([facility]) Vital Signs (Past 12 Hours) Vital Signs Temp Pulse Resp BP Pulse Ox 01/25/20 07:45 36.8 C 68 16 99/63 L 99 PG Care Time/CCT Total # of Minutes Spent Total Time Spent with Patient: Total time spent is greater than 50% in coordination of care (as documented) at patient's floor/unit and/or counseling patient: Coding Level of Care Code 19823 Subseq Hosp Care Lvl 3 Diagnoses Ulcerative pancolitis K51.00 Helicobacter pylori (H. pylori) infection A04.8
[2020-01-25] MEDS: cefTRIAXone SODIUM 1,000 MG in DEXTROSE 5% 50 ML IV SCH (16:41)
[2020-01-25] MEDS: POTASSIUM ACETATE 20 MEQ in SODIUM CHLORIDE 0.45 % 1,000 ML IV SCH (18:57)
--- NOTE | 2020-01-25 19:17 | Billing Data ---
Date of Service January 25, 2020 Coding Level of Care Code 78155 Subseq Hosp Care Lvl 3
[2020-01-25] MEDS: SUCRALFATE 1 GM/10 ML UDC PO SCH (21:39)
[2020-01-26] MEDS: metroNIDAZOLE 500 MG/100 ML BAG IV SCH (02:25)
[2020-01-26] MEDS: POTASSIUM ACETATE 20 MEQ in SODIUM CHLORIDE 0.45 % 1,000 ML IV SCH ×2 (05:15→14:14)
[2020-01-26] MEDS: PANTOprazole 40 MG TAB PO SCH ×2 (09:04→21:36)
[2020-01-26] MEDS: SUCRALFATE 1 GM/10 ML UDC PO SCH ×4 (09:04→21:35)
[2020-01-26] MEDS: CALCIUM 600MG + VIT D 400 IU TAB PO SCH ×2 (09:04→21:35)
[2020-01-26] MEDS: MESALAMINE 800 MG TABCR PO SCH ×3 (09:05→21:36)
[2020-01-26] MEDS: MAGNESIUM OXIDE 400 MG TAB PO SCH ×2 (09:05→21:35)
[2020-01-26] MEDS: CEFDINIR 300 MG CAP PO SCH ×2 (09:06→21:36)
[2020-01-26] MEDS: predniSONE 20 MG TAB PO SCH (09:06)
[2020-01-26] MEDS: FAMOTIDINE 20 MG TAB PO SCH ×2 (09:07→21:36)
[2020-01-26] MEDS: ARTIFICIAL TEARS OP OINT 3.5 GM TUBE OP SCH (09:09)
--- NOTE | 2020-01-26 10:03 | Hospitalist Progress Note ---
Date of Service January 26, 2020 Assessment & Plan (1) IBD (inflammatory bowel disease): Chencho Jernigan" Is a 29-year-old female recently diagnosed with ulcerative colitis at the beginning of December who presents with increased abdominal pain, inability to tolerate p.o. food/liquid without induction of severe diarrhea, bloody diarrhea after completing a steroid taper more rapidly than initially prescribed. Ulcerative colitis flare - Completed 3 days of 30 mg IV solumedrol BID. Started 40 mg oral pred QD for 8 week taper. Meslamine 1600 mg TID. - will likely need remicaide or 6 MP after hospital stay for disease management, follow up GI in 1 mo. - Ca 1200 mg + Vit D supplementation at discharge - low fiber/lactose free diet - started on Ceftriaxone, Metronidazole on 01/22 for concern of developing acute colitis, afebrile since initiation of abx Epigastric Pain - high risk for stress ulcers given steroid treatment and low appetite/intake - omeprazole 40 mg BID - famotidine 20 mg PO BID - sucralfate QID - hx H. pylori in December, questionably didn't complete therapy appropriately. Repeat stool antigen pending. - Already on PPI, Metronidazole. In situation of penicillin allergy, Cefdinir should replace AMoxicillin and Clarythromycin is the only additional medication required. Hypokalemia: resolved BMP daily IV fluids as below Anxiety - Making progress towards accepting disease state. Still highly anxious, possibly having panic attacks? 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 - Follow up with Dr. García for primary care after discharge to continue maintaining anxiety management alongside disease. FEN/GI: Fluid Challenge with goal of 1.5L+, low fiber low lactose diet DVT: SCDs, pharmacoprophylaxis contraindicated in the setting of bleeding colitis Dispo: Med/surg Code: Full Code (2) Ulcerative pancolitis: (3) Acute lower gastrointestinal bleeding: (4) Helicobacter pylori (H. pylori) infection: (5) Encounter for laboratory testing for COVID-19 virus: (6) Abdominal pain, bilateral lower quadrant: Admission and Anticipated Discharge Date Admission Date: January 23, 2020 Supervising Physician Co-Signing Physician Notes I personally examined the patient and verified all jacob points of history and exam, discussed case, and agree with decision making with Dr García. resting/sleeping. but had drank ~24oz fluids (2 boost, 8oz each, another cup ~12oz but not sure how full it had been) between when dr garcía saw her and when i visited. vitals noted nad heent nc at mmm breathing unlabored no accessory muscles good effort skin no rashes no pallor or icterus UC flare -continue steroids - now PO -with fever added abx - continue to complete course for infections superimposed on colitis epigastric pain -worse after food -escalate acid suppression, add carafate. if doesn't improve may need to consider EGD as well - had H Pylori before - see above and see GI notes in regards to treat/retreat - but PO intake is improving orthostatic dizziness -improved anxiety -doing better with reassurance, explanations, time to process dx and plans, etc Subjective Multiple episodes of diarrhea overnight, minimal blood. No fevers, chills. Review of Systems Constitutional: + fatigue and + weakness; no fever, no chills, no sweats and no body aches Gastrointestinal: + abdominal pain, + diarrhea/loose stools and + blood in stools; no nausea and no vomiting Neurologic: + dizziness Psychiatric: + anxiety Physical Exam Constitutional: WD/WN, vitals as above well developed, + ill appearing, + thin, + frail appearing and cooperative; no acute distress Respiratory: normal respiratory effort, lungs clear to auscultation normal respiratory effort; no respiratory distress Auscultation: no crackles and no rales Cardiovascular: RRR, no murmur, no edema Gastrointestinal (Abdomen): Inspection/Auscultation: abdomen normal to inspection, normal bowel sounds and + hyperactive bowel sounds; abdomen not distended Percussion/Palpation: + abdomen tender (epigastric, RLQ) and abdomen soft; no guarding and abdomen not rigid Skin: no rashes, warm and dry Psychiatric: Affect: + anxious affect Mood: + anxious mood Insight: + poor insight Results & Data Results & Data ([facility]) Vital Signs (Past 12 Hours) Vital Signs Temp Pulse Pulse Resp BP Pulse Ox 01/26/20 08:00 36.6 C 70 18 117/78 99 01/25/20 22:43 36.3 C L 66 18 104/70 96 Laboratory Results WBC 19.21 K/uL (4.8-10.8) H 01/25/20 05:26 RBC 4.31 M/uL (4.2-5.4) 01/25/20 05:26 Hgb 12.4 g/dL (12.0-16.0) 01/25/20 05:26 Hct 36.9 % (37-47) L 01/25/20 05:26 MCV 85.6 fL (80-100) 01/25/20 05:26 MCH 28.8 pg (25-34) 01/25/20 05:26 MCHC 33.6 g/dL (32-36) 01/25/20 05:26 RDW Std Deviation 43.2 fL (36.4-46.3) 01/25/20 05:26 RDW Coeff of Johnathan 13.7 % (11.5-14.5) 01/25/20 05:26 Plt Count 488 K/uL (130-400) H 01/25/20 05:26 MPV 8.3 fL (7.4-10.4) 01/25/20 05:26 Immature Gran % (Auto) 1.8 % 01/25/20 05:26 Neut % (Auto) 77.7 % 01/25/20 05:26 Lymph % (Auto) 9.4 % 01/25/20 05:26 [place] % (Auto) 10.9 % 01/25/20 05:26 Eos % (Auto) 0.1 % 01/25/20 05:26 Baso % (Auto) 0.1 % 01/25/20 05:26 Neut # (Auto) 14.93 K/uL (1.4-6.5) H 01/25/20 05:26 Lymph # (Auto) 1.81 K/uL (1.2-3.4) 01/25/20 05:26 [place] # (Auto) 2.09 K/uL (0.11-0.59) H 01/25/20 05:26 Eos # (Auto) 0.02 K/uL (0-0.5) 01/25/20 05:26 Baso # (Auto) 0.02 K/uL (0-0.2) 01/25/20 05:26 Immature Gran # (Auto) 0.34 K/uL (0.00-0.02) H 01/25/20 05:26 Sodium 139 mmol/L (136-145) 01/25/20 05:26 Potassium 3.8 mmol/L (3.5-5.1) 01/25/20 05:26 Chloride 108 mmol/L (98-107) H 01/25/20 05:26 Carbon Dioxide 26 mmol/L (21-32) 01/25/20 05:26 Anion Gap 5.0 (3-11) 01/25/20 05:26 BUN 4 mg/dl (7-18) L 01/25/20 05:26 Creatinine 0.36 mg/dl (0.6-1.2) L 01/25/20 05:26 Est Cr Clr Drug Dosing 174.8 ml/min 01/25/20 05:26 Est GFR ( Amer) > 150.0 01/25/20 05:26 Est GFR (Non-Af Amer) 143.7 01/25/20 05:26 BUN/Creatinine Ratio 11.8 (10-20) 01/25/20 05:26 Glucose 118 mg/dl (70-99) H 01/25/20 05:26 Calcium 8.9 mg/dl (8.5-10.1) 01/25/20 05:26 Magnesium 2.3 mg/dl (1.8-2.4) 01/22/20 06:54 Iron 39 mcg/dl (35-150) 01/23/20 07:00 Transferrin 173 mg/dl (200-360) L 01/23/20 07:00 Transferrin % Sat 16 % (15-50) 01/23/20 07:00 Ferritin 84.5 ng/ml (8-388) 01/23/20 07:00 Total Bilirubin 0.4 mg/dl (0.2-1) 01/22/20 06:54 AST 11 U/L (15-37) L 01/22/20 06:54 ALT 13 U/L (12-78) 01/22/20 06:54 Alkaline Phosphatase 58 U/L (45-117) 01/22/20 06:54 C-Reactive Protein 10.50 mg/dl (0-0.29) H 01/21/20 13:45 Total Protein 6.9 gm/dl (6.4-8.2) D 01/22/20 06:54 Albumin 2.9 gm/dl (3.4-5.0) L 01/22/20 06:54 Globulin 4.0 gm/dl (2.5-4.0) 01/22/20 06:54 Albumin/Globulin Ratio 0.7 (0.9-2) L 01/22/20 06:54 Lipase 194 U/L (73-393) 01/21/20 13:45 Vitamin B12 1271 pg/ml (211-911) H 01/23/20 07:00 25-OH Vitamin D Total 30.8 ng/ml (30-100) 01/23/20 07:00 HCG, Qual Negative (Negative) 01/21/20 13:45 Urine Color Yellow 01/21/20 12:45 Urine Appearance Clear (Clear) 01/21/20 12:45 Urine pH 6.0 (4.5-7.5) 01/21/20 12:45 Ur Specific [place] 1.010 (1.000-1.030) 01/21/20 12:45 Urine Protein Negative (Negative) 01/21/20 12:45 Urine Glucose (UA) Negative (Negative) 01/21/20 12:45 Urine Ketones 3+ (Negative) H 01/21/20 12:45 Urine Blood 1+ (Negative) H 01/21/20 12:45 Urine Nitrite Negative (Negative) 01/21/20 12:45 Urine Bilirubin Negative (Negative) 01/21/20 12:45 Urine Urobilinogen Negative (Negative) 01/21/20 12:45 Ur Leukocyte Esterase Negative (Negative) 01/21/20 12:45 Urine RBC 0-4 /hpf (0-4) 01/21/20 12:45 Urine WBC 0-5 /hpf (0-5) 01/21/20 12:45 Ur Epithelial Cells >30 /lpf (0-5) H 01/21/20 12:45 Urine Bacteria 1+ (Negative) H 01/21/20 12:45 Stl C. diff Tox B Gene Negative Cdiff Gene (Neg) 01/23/20 16:30 Resident Activity Tracking Resident Involvement: Resident Care Provided Care Provided: [facility] Medicine
[2020-01-26] MEDS: metroNIDAZOLE 500 MG TAB PO SCH ×2 (14:20→21:36)
--- NOTE | 2020-01-26 19:50 | Billing Data ---
Date of Service January 26, 2020 Coding Level of Care Code 79323 Subseq Hosp Care Lvl 2
[2020-01-27] MEDS: SUCRALFATE 1 GM/10 ML UDC PO SCH ×4 (06:23→22:19)
[2020-01-27] MEDS: metroNIDAZOLE 500 MG TAB PO SCH ×3 (06:23→22:19)
[2020-01-27] MEDS: CEFDINIR 300 MG CAP PO SCH ×2 (07:32→20:26)
[2020-01-27] MEDS: CALCIUM 600MG + VIT D 400 IU TAB PO SCH ×2 (07:32→20:26)
[2020-01-27] MEDS: MAGNESIUM OXIDE 400 MG TAB PO SCH ×2 (07:32→20:26)
[2020-01-27] MEDS: PANTOprazole 40 MG TAB PO SCH ×2 (07:32→20:25)
[2020-01-27] MEDS: FAMOTIDINE 20 MG TAB PO SCH ×2 (07:32→22:19)
[2020-01-27] MEDS: MESALAMINE 800 MG TABCR PO SCH ×3 (07:32→20:27)
[2020-01-27] MEDS: predniSONE 20 MG TAB PO SCH (07:33)
[2020-01-27] MEDS: ARTIFICIAL TEARS OP OINT 3.5 GM TUBE OP SCH (07:37)
--- NOTE | 2020-01-27 10:05 | Hospitalist Progress Note ---
Date of Service January 27, 2020 Assessment & Plan (1) IBD (inflammatory bowel disease): Chencho Jernigan" Is a 29-year-old female recently diagnosed with ulcerative colitis at the beginning of December who presents with increased abdominal pain, inability to tolerate p.o. food/liquid without induction of severe diarrhea, bloody diarrhea after completing a steroid taper more rapidly than initially prescribed. Ulcerative colitis flare with superimposed acute colitis - Completed 3 days of 30 mg IV solumedrol BID. Started 40 mg oral pred QD for 8 week taper. - continue Meslamine 1600 mg TID. - started on Ceftriaxone, Metronidazole on 01/22 for concern of developing acute colitis. Transitioned to oral meds - cefidinir and metronidazole. - No further fever until today. - Oral intake still low but improving - will continue to monitor. - will likely need remicaide or 6 MP after hospital stay for disease management, follow up GI in 1 mo. - low fiber/lactose free diet - Ca 1200 mg + Vit D and multivitamin supplementation at discharge H. Pylori/Epigastric Pain - high risk for stress ulcers given steroid treatment and low appetite/intake - H. Pylori stool Ag positive, hx infection in December 2019 unfinished treatment. - Already on PPI,Metronidazole and On Cefdinir for Acute Colitis concern; - Clarithromycin started 01/26, to go for 14 days, other antibiotics started on 01/12 - omeprazole 40 mg BID - famotidine 20 mg PO BID - sucralfate QID Anxiety - Still highly anxious, possibly having panic attacks? - open to starting therapy/counseling, does not want to start medication at this time. - making some headway with patient's acceptance of disease process. - Follow up with Dr. García for primary care after discharge to continue maintaining anxiety management alongside disease. FEN/GI: low fiber low lactose diet DVT: SCDs, pharmacoprophylaxis contraindicated in the setting of bleeding colitis Dispo: Med/surg Code: Full Code (2) Ulcerative pancolitis: (3) Acute lower gastrointestinal bleeding: (4) Helicobacter pylori (H. pylori) infection: (5) Encounter for laboratory testing for COVID-19 virus: (6) Abdominal pain, bilateral lower quadrant: Admission and Anticipated Discharge Date Admission Date: January 23, 2020 Supervising Physician Co-Signing Physician Notes Resident Physician Supervision Note: I independently interviewed and examined the patient and verified the jacob history and physical, reviewed labs and image studies, discussed the case with the resident Dr. García and agree with the findings and care plan. Subjective 2 episodes of frankly watery, nonbloody diarrhea this morning. Patient says she feels more chest pain when sitting up or after she has a large watery bowel movement. Still feeling dizzy when moving quickly. Review of Systems Constitutional: + weakness Respiratory: no pain on inspiration Cardiovascular: + chest pain; no palpitations and no edema Gastrointestinal: + abdominal pain, + nausea, + vomiting and + diarrhea/loose stools; no blood in stools Psychiatric: + depression and + anxiety Physical Exam Constitutional: WD/WN, vitals as above + ill appearing, + thin, + frail appearing and cooperative; no acute distress Respiratory: normal respiratory effort, lungs clear to auscultation normal respiratory effort; no respiratory distress Auscultation: no crackles and no rales Cardiovascular: RRR, no murmur, no edema Gastrointestinal (Abdomen): Inspection/Auscultation: abdomen normal to inspection, normal bowel sounds and + hyperactive bowel sounds; abdomen not distended Percussion/Palpation: + abdomen tender (RLQ) and abdomen soft; no guarding and abdomen not rigid Skin: no rashes, warm and dry Psychiatric: Affect: + anxious affect Mood: + anxious mood Insight: + poor insight Results & Data Results & Data ([facility]) Vital Signs (Past 12 Hours) Vital Signs Temp Pulse Pulse Resp BP Pulse Ox 01/27/20 07:40 36.3 C L 114 H 16 115/73 98 01/26/20 23:02 36.6 C 72 14 99/61 L 97 Laboratory Results WBC 19.21 K/uL (4.8-10.8) H 01/25/20 05:26 RBC 4.31 M/uL (4.2-5.4) 01/25/20 05:26 Hgb 12.4 g/dL (12.0-16.0) 01/25/20 05:26 Hct 36.9 % (37-47) L 01/25/20 05:26 MCV 85.6 fL (80-100) 01/25/20 05:26 MCH 28.8 pg (25-34) 01/25/20 05:26 MCHC 33.6 g/dL (32-36) 01/25/20 05:26 RDW Std Deviation 43.2 fL (36.4-46.3) 01/25/20 05:26 RDW Coeff of Johnathan 13.7 % (11.5-14.5) 01/25/20 05:26 Plt Count 488 K/uL (130-400) H 01/25/20 05:26 MPV 8.3 fL (7.4-10.4) 01/25/20 05:26 Immature Gran % (Auto) 1.8 % 01/25/20 05:26 Neut % (Auto) 77.7 % 01/25/20 05:26 Lymph % (Auto) 9.4 % 01/25/20 05:26 [place] % (Auto) 10.9 % 01/25/20 05:26 Eos % (Auto) 0.1 % 01/25/20 05:26 Baso % (Auto) 0.1 % 01/25/20 05:26 Neut # (Auto) 14.93 K/uL (1.4-6.5) H 01/25/20 05:26 Lymph # (Auto) 1.81 K/uL (1.2-3.4) 01/25/20 05:26 [place] # (Auto) 2.09 K/uL (0.11-0.59) H 01/25/20 05:26 Eos # (Auto) 0.02 K/uL (0-0.5) 01/25/20 05:26 Baso # (Auto) 0.02 K/uL (0-0.2) 01/25/20 05:26 Immature Gran # (Auto) 0.34 K/uL (0.00-0.02) H 01/25/20 05:26 Sodium 139 mmol/L (136-145) 01/25/20 05:26 Potassium 3.8 mmol/L (3.5-5.1) 01/25/20 05:26 Chloride 108 mmol/L (98-107) H 01/25/20 05:26 Carbon Dioxide 26 mmol/L (21-32) 01/25/20 05:26 Anion Gap 5.0 (3-11) 01/25/20 05:26 BUN 4 mg/dl (7-18) L 01/25/20 05:26 Creatinine 0.36 mg/dl (0.6-1.2) L 01/25/20 05:26 Est Cr Clr Drug Dosing 174.8 ml/min 01/25/20 05:26 Est GFR ( Amer) > 150.0 01/25/20 05:26 Est GFR (Non-Af Amer) 143.7 01/25/20 05:26 BUN/Creatinine Ratio 11.8 (10-20) 01/25/20 05:26 Glucose 118 mg/dl (70-99) H 01/25/20 05:26 Calcium 8.9 mg/dl (8.5-10.1) 01/25/20 05:26 Magnesium 2.3 mg/dl (1.8-2.4) 01/22/20 06:54 Iron 39 mcg/dl (35-150) 01/23/20 07:00 Transferrin 173 mg/dl (200-360) L 01/23/20 07:00 Transferrin % Sat 16 % (15-50) 01/23/20 07:00 Ferritin 84.5 ng/ml (8-388) 01/23/20 07:00 Total Bilirubin 0.4 mg/dl (0.2-1) 01/22/20 06:54 AST 11 U/L (15-37) L 01/22/20 06:54 ALT 13 U/L (12-78) 01/22/20 06:54 Alkaline Phosphatase 58 U/L (45-117) 01/22/20 06:54 C-Reactive Protein 10.50 mg/dl (0-0.29) H 01/21/20 13:45 Total Protein 6.9 gm/dl (6.4-8.2) D 01/22/20 06:54 Albumin 2.9 gm/dl (3.4-5.0) L 01/22/20 06:54 Globulin 4.0 gm/dl (2.5-4.0) 01/22/20 06:54 Albumin/Globulin Ratio 0.7 (0.9-2) L 01/22/20 06:54 Lipase 194 U/L (73-393) 01/21/20 13:45 Vitamin B12 1271 pg/ml (211-911) H 01/23/20 07:00 25-OH Vitamin D Total 30.8 ng/ml (30-100) 01/23/20 07:00 HCG, Qual Negative (Negative) 01/21/20 13:45 Urine Color Yellow 01/21/20 12:45 Urine Appearance Clear (Clear) 01/21/20 12:45 Urine pH 6.0 (4.5-7.5) 01/21/20 12:45 Ur Specific [place] 1.010 (1.000-1.030) 01/21/20 12:45 Urine Protein Negative (Negative) 01/21/20 12:45 Urine Glucose (UA) Negative (Negative) 01/21/20 12:45 Urine Ketones 3+ (Negative) H 01/21/20 12:45 Urine Blood 1+ (Negative) H 01/21/20 12:45 Urine Nitrite Negative (Negative) 01/21/20 12:45 Urine Bilirubin Negative (Negative) 01/21/20 12:45 Urine Urobilinogen Negative (Negative) 01/21/20 12:45 Ur Leukocyte Esterase Negative (Negative) 01/21/20 12:45 Urine RBC 0-4 /hpf (0-4) 01/21/20 12:45 Urine WBC 0-5 /hpf (0-5) 01/21/20 12:45 Ur Epithelial Cells >30 /lpf (0-5) H 01/21/20 12:45 Urine Bacteria 1+ (Negative) H 01/21/20 12:45 Stl C. diff Tox B Gene Negative Cdiff Gene (Neg) 01/23/20 16:30 Stool H. pylori Ag SEE NOTE A 01/23/20 16:30 Resident Activity Tracking Resident Involvement: Resident Care Provided Care Provided: Adult Hospital Medicine
[2020-01-27] MEDS: ONDANSETRON 4 MG OD TAB PO PRN (11:50)
[2020-01-27] MEDS: CLARITHROMYCIN 500 MG TAB PO SCH (20:25)
[2020-01-27] MEDS: ACETAMINOPHEN 325 MG TAB PO PRN (20:36)
[2020-01-28] MEDS: metroNIDAZOLE 500 MG TAB PO SCH ×3 (05:34→22:32)
[2020-01-28] MEDS: SUCRALFATE 1 GM/10 ML UDC PO SCH ×4 (08:13→22:17)
[2020-01-28] MEDS: CALCIUM 600MG + VIT D 400 IU TAB PO SCH ×2 (08:23→22:31)
[2020-01-28] MEDS: CLARITHROMYCIN 500 MG TAB PO SCH ×2 (08:23→22:25)
[2020-01-28] MEDS: MESALAMINE 800 MG TABCR PO SCH ×3 (08:24→22:25)
[2020-01-28] MEDS: MAGNESIUM OXIDE 400 MG TAB PO SCH ×2 (08:24→22:31)
[2020-01-28] MEDS: ARTIFICIAL TEARS OP OINT 3.5 GM TUBE OP SCH (08:25)
[2020-01-28] MEDS: FAMOTIDINE 20 MG TAB PO SCH ×2 (08:25→22:23)
[2020-01-28] MEDS: predniSONE 20 MG TAB PO SCH (08:25)
[2020-01-28] MEDS: CEFDINIR 300 MG CAP PO SCH (08:26)
[2020-01-28] MEDS: PANTOprazole 40 MG TAB PO SCH ×2 (08:26→22:17)
[2020-01-28 11:21] LABS: Hematocrit (blood only) 41.6 % (37-47); Hemoglobin 14.7 g/dL (12.0-16.0); Mean Corpuscular Hemoglobin 29.2 pg (25-34); Mean Corpuscular Hgb Conc 35.3 g/dL (32-36); Mean Corpuscular Volume 82.7 fL (80-100); Mean Platelet Volume 8.1 fL (7.4-10.4); Platelet Count 447 K/uL (130-400); RDW Coefficient of Variation 13.5 % (11.5-14.5); RDW Standard Deviation 40.7 fL (36.4-46.3); Red Blood Count 5.03 M/uL (4.2-5.4); White Blood Count 31.49 K/uL (4.8-10.8)
[2020-01-28 11:54] LABS: Basophils # (auto) 0.05 K/uL (0-0.2); Basophils % (auto) 0.2 %; Eosinophils # (auto) 0.31 K/uL (0-0.5); Immature Granulocytes # (auto) 0.59 K/uL (0.00-0.02); Immature Granulocytes % (auto) 1.9 %; Lymphocytes # (auto) 2.64 K/uL (1.2-3.4); Lymphocytes % (auto) 8.4 %; Monocytes # (auto) 1.45 K/uL (0.11-0.59); Monocytes % (auto) 4.6 %; Neutrophils # (auto) 26.45 K/uL (1.4-6.5); Neutrophils % (auto) 83.9 %
--- NOTE | 2020-01-28 12:34 | Hospitalist Progress Note ---
Date of Service January 28, 2020 Assessment & Plan (1) IBD (inflammatory bowel disease): Chencho Jernigan" Is a 29-year-old female recently diagnosed with ulcerative colitis at the beginning of December who presents with increased abdominal pain, inability to tolerate p.o. food/liquid without induction of severe diarrhea, bloody diarrhea after completing a steroid taper more rapidly than initially prescribed. Ulcerative colitis flare - On 40 mg oral pred QD for 8 week taper; IV pred course completed - continue Meslamine 1600 mg TID. - Oral intake still low but improving - will continue to monitor. - will likely need remicaide or 6 MP after hospital stay for disease management, follow up GI in 1 mo. - low fiber/lactose free diet - Ca 1200 mg + Vit D and multivitamin supplementation at discharge Fever - started on Ceftriaxone, Metronidazole on 01/22 for concern of developing acute colitis. Metronidazole transitioned to oral meds. - Cefdinir dc'd per GI. - Last fever 01/26 2:30 pm, now fever free 24hours - WBC 31k, likely secondary to high dose steroids or UC - suspect fever sec to UC. H. Pylori/Epigastric Pain - high risk for stress ulcers given steroid treatment and low appetite/intake - H. Pylori stool Ag positive, hx infection in December 2019 unfinished treatment. - Already on PPI and Metronidazole - Clarithromycin started 01/26, to go for 14 days, other antibiotics started on 01/12 - omeprazole 40 mg BID - famotidine 20 mg PO BID - sucralfate QID Anxiety - denies SI to this physician - Still highly anxious, possibly having panic attacks? - open to starting therapy/counseling, does not want to start medication at this time. - making some headway with patient's acceptance of disease process. - Follow up with me for primary care after discharge to continue maintaining anxiety management alongside disease. Weakness - Patient has required repetitive verbal support to get up and out of bed and try her best to be more physically active while here. Attempted to do a fluid challenge between 01/25 and 01/26 to see if patient could drink enough oral fluid to the stay off of the IV and support itself. Patient did well through the afternoon of the however was unable to maintain fluid and had an episode of emesis in the morning of the . Patient frequently complains of dizziness when sitting up which has improved with increase oral intake and IV fluid management. Most likely secondary to orthostatic hypotension and fluid losses through diarrhea. - doing better today. FEN/GI: low fiber low lactose diet DVT: SCDs, pharmacoprophylaxis contraindicated in the setting of bleeding colitis Dispo: Med/surg Code: Full Code (2) Ulcerative pancolitis: (3) Acute lower gastrointestinal bleeding: (4) Helicobacter pylori (H. pylori) infection: (5) Encounter for laboratory testing for COVID-19 virus: (6) Abdominal pain, bilateral lower quadrant: Admission and Anticipated Discharge Date Admission Date: January 23, 2020 Supervising Physician Co-Signing Physician Notes Resident Physician Supervision Note: I independently interviewed and examined the patient and verified the jacob history and physical, reviewed labs and image studies, discussed the case with the resident Dr. García and agree with the findings and care plan. Subjective Pt was sitting up and well in bed this AM. some concerns from nursing regarding patient having had access to scissors and cutting her own hair between the hours of 3 and 11 PM yesterday.Pt denied SI, still feeling weak. Review of Systems Constitutional: no fever, no chills, no body aches and no fatigue Respiratory: no cough and no dyspnea Cardiovascular: + chest pain; no dyspnea and no edema Gastrointestinal: + abdominal pain, + nausea and + diarrhea/loose stools; no vomiting and no constipation Genitourinary: no dysuria Physical Exam Constitutional: WD/WN, vitals as above + ill appearing, + thin, + frail appearing and cooperative; no acute distress Respiratory: normal respiratory effort, lungs clear to auscultation normal respiratory effort; no respiratory distress Auscultation: no crackles and no rales Cardiovascular: RRR, no murmur, no edema Gastrointestinal (Abdomen): Inspection/Auscultation: abdomen normal to inspection, normal bowel sounds and + hyperactive bowel sounds; abdomen not distended Percussion/Palpation: + abdomen tender (RLQ) and abdomen soft; no guarding and abdomen not rigid Skin: no rashes, warm and dry Psychiatric: Affect: + anxious affect Mood: + anxious mood Insight: + poor insight Results & Data Results & Data ([facility]) Vital Signs (Past 12 Hours) Vital Signs Temp Pulse Resp BP Pulse Ox 01/28/20 08:19 36.6 C 100 H 16 103/75 97 Laboratory Results WBC 31.49 K/uL (4.8-10.8) H* 01/28/20 11:02 RBC 5.03 M/uL (4.2-5.4) 01/28/20 11:02 Hgb 14.7 g/dL (12.0-16.0) 01/28/20 11:02 Hct 41.6 % (37-47) 01/28/20 11:02 MCV 82.7 fL (80-100) 01/28/20 11:02 MCH 29.2 pg (25-34) 01/28/20 11:02 MCHC 35.3 g/dL (32-36) 01/28/20 11:02 RDW Std Deviation 40.7 fL (36.4-46.3) 01/28/20 11:02 RDW Coeff of Johnathan 13.5 % (11.5-14.5) 01/28/20 11:02 Plt Count 447 K/uL (130-400) H 01/28/20 11:02 MPV 8.1 fL (7.4-10.4) 01/28/20 11:02 Immature Gran % (Auto) 1.9 % 01/28/20 11:02 Neut % (Auto) 83.9 % 01/28/20 11:02 Lymph % (Auto) 8.4 % 01/28/20 11:02 [place] % (Auto) 4.6 % 01/28/20 11:02 Eos % (Auto) 1.0 % 01/28/20 11:02 Baso % (Auto) 0.2 % 01/28/20 11:02 Neut # (Auto) 26.45 K/uL (1.4-6.5) H 01/28/20 11:02 Lymph # (Auto) 2.64 K/uL (1.2-3.4) 01/28/20 11:02 [place] # (Auto) 1.45 K/uL (0.11-0.59) H 01/28/20 11:02 Eos # (Auto) 0.31 K/uL (0-0.5) 01/28/20 11:02 Baso # (Auto) 0.05 K/uL (0-0.2) 01/28/20 11:02 Immature Gran # (Auto) 0.59 K/uL (0.00-0.02) H 01/28/20 11:02 Sodium 139 mmol/L (136-145) 01/25/20 05:26 Potassium 3.8 mmol/L (3.5-5.1) 01/25/20 05:26 Chloride 108 mmol/L (98-107) H 01/25/20 05:26 Carbon Dioxide 26 mmol/L (21-32) 01/25/20 05:26 Anion Gap 5.0 (3-11) 01/25/20 05:26 BUN 4 mg/dl (7-18) L 01/25/20 05:26 Creatinine 0.36 mg/dl (0.6-1.2) L 01/25/20 05:26 Est Cr Clr Drug Dosing 174.8 ml/min 01/25/20 05:26 Est GFR ( Amer) > 150.0 01/25/20 05:26 Est GFR (Non-Af Amer) 143.7 01/25/20 05:26 BUN/Creatinine Ratio 11.8 (10-20) 01/25/20 05:26 Glucose 118 mg/dl (70-99) H 01/25/20 05:26 Calcium 8.9 mg/dl (8.5-10.1) 01/25/20 05:26 Magnesium 2.3 mg/dl (1.8-2.4) 01/22/20 06:54 Iron 39 mcg/dl (35-150) 01/23/20 07:00 Transferrin 173 mg/dl (200-360) L 01/23/20 07:00 Transferrin % Sat 16 % (15-50) 01/23/20 07:00 Ferritin 84.5 ng/ml (8-388) 01/23/20 07:00 Total Bilirubin 0.4 mg/dl (0.2-1) 01/22/20 06:54 AST 11 U/L (15-37) L 01/22/20 06:54 ALT 13 U/L (12-78) 01/22/20 06:54 Alkaline Phosphatase 58 U/L (45-117) 01/22/20 06:54 C-Reactive Protein 10.50 mg/dl (0-0.29) H 01/21/20 13:45 Total Protein 6.9 gm/dl (6.4-8.2) D 01/22/20 06:54 Albumin 2.9 gm/dl (3.4-5.0) L 01/22/20 06:54 Globulin 4.0 gm/dl (2.5-4.0) 01/22/20 06:54 Albumin/Globulin Ratio 0.7 (0.9-2) L 01/22/20 06:54 Lipase 194 U/L (73-393) 01/21/20 13:45 Vitamin B12 1271 pg/ml (211-911) H 01/23/20 07:00 25-OH Vitamin D Total 30.8 ng/ml (30-100) 01/23/20 07:00 HCG, Qual Negative (Negative) 01/21/20 13:45 Urine Color Yellow 01/21/20 12:45 Urine Appearance Clear (Clear) 01/21/20 12:45 Urine pH 6.0 (4.5-7.5) 01/21/20 12:45 Ur Specific [place] 1.010 (1.000-1.030) 01/21/20 12:45 Urine Protein Negative (Negative) 01/21/20 12:45 Urine Glucose (UA) Negative (Negative) 01/21/20 12:45 Urine Ketones 3+ (Negative) H 01/21/20 12:45 Urine Blood 1+ (Negative) H 01/21/20 12:45 Urine Nitrite Negative (Negative) 01/21/20 12:45 Urine Bilirubin Negative (Negative) 01/21/20 12:45 Urine Urobilinogen Negative (Negative) 01/21/20 12:45 Ur Leukocyte Esterase Negative (Negative) 01/21/20 12:45 Urine RBC 0-4 /hpf (0-4) 01/21/20 12:45 Urine WBC 0-5 /hpf (0-5) 01/21/20 12:45 Ur Epithelial Cells >30 /lpf (0-5) H 01/21/20 12:45 Urine Bacteria 1+ (Negative) H 01/21/20 12:45 Stl C. diff Tox B Gene Negative Cdiff Gene (Neg) 01/23/20 16:30 Stool H. pylori Ag SEE NOTE A 01/23/20 16:30 Resident Activity Tracking Resident Involvement: Resident Care Provided Care Provided: Adult [facility]
[2020-01-28] MEDS ORDERED: MESALAMINE 800 MG TABCR PO ONE (22:49)
[2020-01-28] MEDS ORDERED: CLARITHROMYCIN 500 MG TAB PO ONE (22:50)
[2020-01-28] MEDS ORDERED: metroNIDAZOLE 500 MG TAB PO ONE (22:50)
[2020-01-28] MEDS ORDERED: ONDANSETRON 4 MG OD TAB PO STA (22:52)
--- NOTE | 2020-01-28 22:56 | Communication Note ---
Date of Service: January 28, 2020 Patient nauseous at 9pm, refused meds at that time. She vomited while brushing teeth about 30 minutes later. She then tried taking her meds and had emesis on the last pill. Will reorder pertinent meds for tonight Mesalamine, Clarithromycin, Flagyl. Zofran 4mg ODT ordered and instructed to give prior to further meds to curb nausea.
[2020-01-29] MEDS: metroNIDAZOLE 500 MG TAB PO SCH ×3 (05:35→13:14)
[2020-01-29] MEDS: ONDANSETRON 4 MG OD TAB PO PRN (05:48)
--- NOTE | 2020-01-29 08:34 | Discharge Summary ---
Date of Service January 29, 2020 Admission HPI Per Admitting Provider Chencho Jernigan" Is a 29-year-old female recently diagnosed with ulcerative colitis at the beginning of December who presents with increased abdominal pain, inability to tolerate p.o. food/liquid without induction of severe diarrhea, bloody diarrhea after completing a steroid taper more rapidly than initially prescribed. Janell was seen by Dr. Wray on December 10 for abdominal pain and bloody diarrhea. She underwent a colonoscopy which showed diffuse area of congested, erythematous, friable mucosa with contact bleeding and several biopsies were taken. She was diagnosed with ulcerative colitis and prescribed a prednisone taper and oral mesalamine. She was treated with triple therapy for H. pylori at the time. She was scheduled for follow-up in 8 weeks with repeat colonoscopy in 6 to 12 months with additional EGD due to H. pylori. As well reports that she has been taking the mesalamine as prescribed, but had difficulty splitting the prednisone tablets in half so decreased by 10 mg/week instead of 5 mg and took her last prednisone dose about 1 week ago. She reports she has had some stomachache, and loose bowels in the past month but that they have rapidly increased in the last week and she presented to the emergency department after any food or oral intake caused increased liquid diarrhea with bright red blood. She denies fever, chills. Denies mucus in her bowel movements. She endorses a history of intermittent low blood pressure in the past, denies other medical history. Medications: Reviewed Medical history: Reviewed, pertinent positive for recent diagnosis of UC Surgical history: Reviewed Allergies: Reviewed, endorses diarrhea due to penicillin Social: Denies tobacco, alcohol, and recreational drug use. 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 CODE STATUS: Full code, Admission Exam Per Admitting Provider General: A&Ox3. NAD. Cooperative. HEENT: Atraumatic, normocephalic. Mucous membranes tacky. Pulm: CTAB A&P. -wheezes, -rales, -rhonchi. Symmetrical chest rise. No increase work of breathing. No respiratory distress. Cardiac: Tachycardic, regular, -mrg. Radial pulses intact and symmetrical. Abdominal: Diffuse mild tenderness to light palpation most prominent in umbilical, left lower quadrant. No rebound tenderness. Nonrigid. No guarding. Extremities: Warm, dry. Sensation intact to soft touch in fingertips and toes. Alteration Inspector strength and ankle plantarflexion/dorsiflexion intact without asymmetry. Principal Diagnosis Ulcerative Colitis, H. Pylori Discharge Exam WD/WN, vitals as above , + thin, + frail appearing and cooperative; no acute distress Respiratory: normal respiratory effort, lungs clear to auscultation normal respiratory effort; no respiratory distress Auscultation: no crackles and no rales Cardiovascular: RRR, no murmur, no edema Gastrointestinal (Abdomen): Inspection/Auscultation: abdomen normal to inspection, normal bowel sounds and + hyperactive bowel sounds; abdomen not distended Percussion/Palpation: + abdomen tender (RLQ) and abdomen soft; no guarding and abdomen not rigid Skin: no rashes, warm and dry Psychiatric: Affect: + anxious affect Mood: Visibly improved Insight: Good insight Discharge Data Allergies Allergy/AdvReac Type Severity Reaction Status Date / Time Penicillins Allergy Mild Rash Verified 01/21/20 13:55 Consultations 01/21/20 19:01 ED Decision to Admit Stat 01/21/20 21:47 Consult Gastroenterology Routine Ordered Studies 01/21/20 12:11 CT abd pelvis oral and IV con Stat Hospital Course (1) IBD (inflammatory bowel disease): Chencho Jernigan" Is a 29-year-old female recently diagnosed with ulcerative colitis at the beginning of December who presents with increased abdominal pain, inability to tolerate p.o. food/liquid without induction of severe diarrhea, bloody diarrhea after completing a steroid taper more rapidly than initially prescribed. Ulcerative colitis flare She was treated with 3 days of IV steroids followed by initiation of a 40 mg oral prednisone 8-week taper. Home mesalamine continued while inpatient. GI saw her while admitted and recommended follow-up in 1 month when they will initiate either Remicade or 6-MP. Continue low fiber/lactose-free diet. H. pylori Intermittently febrile during hospitalization. Initially thought to have a developing colitis that was treated with IV ceftriaxone and metronidazole starting on 01/22. H. pylori stool antigen was positive; most likely source of fevers. Started on clarithromycin on 01/26 to complete for 14 days. PPI twice daily transition to daily at discharge. WBC count elevated to 31 2 days prior to discharge; most likely secondary to the high levels of steroids she is receiving. Follow-up on outpatient. Anxiety Required a large amount of bedside reassurance and education regarding ulcerative colitis and importance of medication. Psychiatry consulted on 01/28they agreed this is largely anxiety partially stemmed from unhappiness with marriage. Patient did agree to starting therapy or counseling but did not want to start any medication at this time as she is overwhelmed with the many medications she has to take. Follow-up outpatient. Total Time Total Time Spent Total Time Spent (In Minutes): See attending attestation Discharge Plan Discharge Items Patient Disposition: Home - Self-Care Reason For Visit: UC Discharge Diagnosis: Ulcerative Colitis Flare Activity: Resume your previous activity Non-emergency contact: Primary Care Provider Call non-emergency contact if: your symptoms worsen and your pain is concerning for you Follow-up/Referrals: [facility] [Primary Care Provider] - Cheli García MD [Resident] - 01/27/20 Diet: Low Fiber and Lactose Intolerant Addtl Attending Provider Instructions: You were evaluated in the hospital for a flare of your Ulcerative Colitis (IBD). Treatment of this acute worsening requires an 8 week taper of oral prednisone to ensure careful, full healing of your colon membranes. Gastroenterology saw you while you were in the hospital and recommended that you be started on higher strength medications to control the disease process in the future. They will start this on your follow up appointment with them. Ulcerative Colitis (required) - Mesalamine 1,600 mg Three times a day - Prednisone as below: take all steroids with meals to decrease chances of stomach damage. I've sent the prescription as 20 mg tablets and 5 mg tablets to make it easy for you to add up to the right dose. 40 mg daily 01/25 - 02/01, 35 mg daily 02/02 - 02/09, 30 mg 02/10 - 02/17, 25 mg 02/18 - 02/25, 20 mg 02/26 - 03/05, 15 mg 03/06 - 03/13, 10 mg 03/14 - 03/21, 5 mg 03/22 - 03/29 Taper complete. - Follow up with GI to discuss starting either 6-Mercaptopurine or Remicaide for chronic Ulcerative Colitis management. Stomach pain/inflammation with H Pylori infection (required) - You were started on clarithromycin and metronidazole for this infection which you will continue taking on discharge. - Pantoprazole 40 mg once a day Follow up with Dr. García at the [facility] [address] on Feb 05 at 9:30 AM. Pending Studies at Discharge: No Stand-Alone Forms: My [facility], Smoking Cessation Medications and DC Order Prescriptions: New ondansetron HCl [Zofran] 4 mg tablet 4 mg PO Q6H PRN (Reason: nausea and vomiting) Qty: 20 RF: 0 sucralfate 100 mg/mL Suspension 10 ml PO BID 14 Days Qty: 280 RF: 0 famotidine 20 mg Tablet 20 mg PO BID 30 Days Qty: 60 RF: 0 magnesium oxide 400 mg (241.3 mg magnesium) Tablet 400 mg PO BID 30 Days Qty: 60 RF: 0 ondansetron 4 mg Tablet,Disintegrating 4 mg PO Q12H PRN (Reason: nausea and vomiting) 30 Days Qty: 120 RF: 0 Caltrate 600-D Plus Minerals 600 mg calcium- 800 unit-50 mg Tablet 1 tab PO BID 30 Days Qty: 60 RF: 0 prednisone 5 mg tablet 5 mg PO .instructions Qty: 84 RF: 0 prednisone 20 mg tablet 20 mg PO DAILY Qty: 42 RF: 0 omeprazole 40 mg capsule,delayed release(DR/EC) 40 mg PO BID 30 Days Qty: 60 RF: 0 clarithromycin 500 mg Tablet 500 mg PO Q12 12 Days Qty: 24 RF: 0 metronidazole 500 mg Tablet 500 mg PO Q8 8 Days Qty: 24 RF: 0 Continued mesalamine [Lialda] 1.2 gram tablet,delayed release (DR/EC) 2.4 gm PO BID Qty: 120 RF: 5 Discontinued prednisone 10 mg tablet See Rx Instructions .ROUTE .COMPLEX Qty: 126 RF: 0 #2 Tablet 1 tab PO Q3D RF: 0 lansoprazole 30 mg capsule,delayed release(DR/EC) 30 mg PO QAM RF: 0 Discharge Orders: Discharge Order (Routine); Ordered 01/29/20 Ordered By: Cheli Valentin/Other Patient Handouts: Low-Fiber Diet, What Is Ulcerative Colitis?, Colitis Ulcerative Lifestyle Admission Data Admit Date/Time: 01/23/20 16:35 Attending Provider: Deann Paulino Admit Provider: Guille Reich Primary Care Provider: [facility] Other Providers: Keven Wray ; Cheli García ; Darrell Molina ; Michael Lea ; Bhavik Velez ; Kayleigh Sandra Other Interventions: Discharge Summary Assessment (RN) Last Done: 01/29/20 15:13 Supervising Physician Co-Signing Physician Notes Resident Physician Supervision Note: I independently interviewed and examined the patient and verified the jacob history and physical, reviewed labs and image studies, discussed the case with the resident Dr. García and agree with the findings and care plan. Resident Activity Tracking Resident Involvement: Resident Care Provided Care Provided: Adult [facility]
[2020-01-29] MEDS: SUCRALFATE 1 GM/10 ML UDC PO SCH ×3 (08:43→17:41)
[2020-01-29] MEDS: CLARITHROMYCIN 500 MG TAB PO SCH (08:43)
[2020-01-29] MEDS: MAGNESIUM OXIDE 400 MG TAB PO SCH (08:44)
[2020-01-29] MEDS: MESALAMINE 800 MG TABCR PO SCH ×2 (08:44→13:14)
[2020-01-29] MEDS: CALCIUM 600MG + VIT D 400 IU TAB PO SCH (08:44)
[2020-01-29] MEDS: ARTIFICIAL TEARS OP OINT 3.5 GM TUBE OP SCH (08:44)
[2020-01-29] MEDS: predniSONE 20 MG TAB PO SCH (08:45)
[2020-01-29] MEDS: PANTOprazole 40 MG TAB PO SCH (08:45)
[2020-01-29] MEDS: FAMOTIDINE 20 MG TAB PO SCH (08:46)
--- NOTE | 2020-01-29 11:44 | Psychiatric Consultation ---
Date of Consultation January 29, 2020 Impression / Recommendations Impression Dr. Kayleigh Sandra was directly involved in review and discussion of the patient's case and participated in medical decision making regarding treatment recommendations. RECOMMENDATIONS: 01/28 - Psychiatric consultation requested to evaluate patient for anxiety, concern for SI, and "fixation of ideas." It was reported that patient has recently been diagnosed with ulcerative colitis, and may be in denial about the diagnosis/treatment. - Pt admits to anxiety, feeling "pressure", and being unhappy presently in her marriage. She is willing for outpatient referrals for individual therapy to process these various stressors. Pt is not willing to consider medications to help with anxiety, as she is already overwhelmed with her new medication regimen. Depending on timeline of discharge, it may be necessary for therapy offices to contact the patient directly after she leaves the hospital. - In regard to fixation and perseveration, patient does demonstrate some odd thought patterns - some of which may be cultural in nature. She believes that energy imbalances are responsible for her medical concerns. The various unusual thoughts verbalized do not clearly seem to be delusional in nature, and are not likely to contribute to acute safety concerns on discharge. Encourage continued monitoring with outpatient therapist. - Pt tells this provider she has occasional passive thoughts, specifically when she and her are having difficulties. She denies active plan, means, or intent. We reviewed safety planning, and patient continued to be future oriented during our conversation. With available information, she does not meet criteria for acute inpatient psychiatric hospitalization. - Requested that contact information for [facility] be put into patient's discharge packet, as they offer therapy groups for graduate students and patient is seeking an increased sense of community and support. - Please reach out to our service with any additional questions or concerns. (1) Anxiety: Risk Factors Assessment Do You Have Access To A Gun?: No Psych History Identifying Data 29-year-old female admitted medically on 01/21/2020 after presenting to the ED with report of bloody diarrhea. Pt reportedly received the diagnosis of Ulcerative Colitis the beginning of December and it is believed she has had difficulty coming to terms with the diagnosis. Psychiatric consultation was requested by hospitalist service to evaluate patient for anxiety, concern for SI, and fixation of ideas. Chief Complaint "Belly issues. I do want to be strong." History of Present Illness Wenhui "Dolores" Chuy is a 29-year-old Turkmen female admitted medically on 01/21/2020 after presenting to the ED with reports of blood diarrhea. Pt follows with GI, and it is reported she received a diagnosis of Ulcerative Colitis in 12/2019 - there is belief patient has not yet come to terms with this diagnosis and associated treatment. Psychiatric consultation was requested to evaluate patient for anxiety, concern for SI, and fixation of ideas. Progress notes and nursing notes reviewed - it appears patient has been noncompliant with medications from time to time. Pt was cooperative with assessment. She tells this provider she is here for "belly issues" and shares "I do want to be strong." Pt states she has been dealing with these GI concerns for 2 months, but increased severity led to ED presentation. Pt believes her GI concerns have to do with "pressure" - reporting some "stress." Pt admits that she is most overwhelmed by her current medication regimen. She states "It's just a lot and my stomach is so tiny." Pt is able to acknowledge that there is a reasonable indication for the medications she is prescribed, but does not generally like to take medications. For this reason, patient is also declining any medications that could be used to help with anxiety. Pt is, however, willing for an outpatient therapist. We discussed group therapy for graduate students at [facility], and patient was able to engage in safety planning conversation. She denies acute or active SI, but does admit to episodes of passive thoughts. Pt states "especially when I am not happy with my , I want to just lay there and sleep and then ." Pt states "I would not doing anything. Nothing painful." She denies plan, intent, or means to harm herself and was able to openly discuss recommendations to explore the [facility] or come to the ED with any acute safety concerns. We did discuss her unhappiness within her marriage. Pt denies physical abuse or other safety concerns. She was made aware of [facility], should any of these concerns arise. We did discuss reports that patient cut her hair off while in the hospital. She states "it was smelly, I could tell it wasn't clean, so I wanted it off." Pt states this is the first time she has cut her own hair. She did report to our liaison nurse that she believes her current physical issues are related to energy imbalances, and can be corrected with behavioral changes rather than medications. We discuss that while behavioral and dietary changes may help, medications are generally necessary to slow progression and treat acute symptoms. The reports of energy imbalances may certainly be a cultural belief. Otherwise, she does not verbalize any bizarre or delusional thought content. She denied other concerns or needs from our service. Past Psychiatric History Current Psychiatric Diagnosis: No previous diagnoses - concern for anxiety Outpatient Services: None Previous Psych Admissions: None Do You Have Access To A Gun?: No History of Previous Suicide Attempt: No Past Medication Trials: Denied Allergies Allergy/AdvReac Type Severity Reaction Status Date / Time Penicillins Allergy Mild Rash Verified 01/21/20 13:55 Home Medications Home Medications Medication Instructions Recorded Confirmed Type Lialda 1.2 gram tablet,delayed 2.4 gm PO BID #120 tab NS 12/25/19 01/21/20 Rx release ondansetron HCl [Zofran] 4 mg PO Q6H PRN #20 tab 01/21/20 Rx [id number] 1 tab PO BID 30 Days #60 tab 01/26/20 Rx [Caltrate 600-D Plus Minerals] famotidine 20 mg PO BID 30 Days #60 tab 01/26/20 Rx magnesium oxide 400 mg PO BID 30 Days #60 tab 01/26/20 Rx omeprazole 40 mg PO BID 30 Days #60 cap 01/26/20 Rx ondansetron 4 mg PO Q12H PRN 30 Days #120 tab 01/26/20 Rx prednisone 5 mg PO .instructions #84 tab 01/26/20 Rx prednisone 20 mg PO DAILY #42 tab 01/26/20 Rx sucralfate 10 ml PO BID 14 Days #280 ml 01/26/20 Rx clarithromycin 500 mg PO Q12 12 Days #24 tab 01/29/20 Rx metronidazole 500 mg PO Q8 8 Days #24 tab 01/29/20 Rx Family History Reports possibility of family history of anxiety. Substance Abuse History Denies significant alcohol or tobacco use. Denies use of illicit substances. 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 Grandfather (Paternal) Family history of diabetes mellitus Other No family history of adverse response to anesthesia Denies family history of Crohn's disease Colorectal cancer Ulcerative colitis Social History Smoking Status: Never smoker Second Hand Exposure: No; Hx Alcohol Use: No Hx Substance Use: No Preferred Language: Mandarin Turkmen Communication Ability: Effective Manager Utilization Review Required: No marital status: Current Living Situation: Spouse Feels Safe at Home: Yes Physical Exam Psychiatric: Orientation: alert, oriented x 3 and cooperative Apperance: appropriately dressed, appropriately groomed and appeared stated age Eye Contact: good eye contact Motor Behavior: no abnormal motor movements (observed while sitting in bedside chair) Speech: normal rate/rhythm/volume of speech Affect: + blunted affect (appearing subdued, but not overtly depressed) and mood congruent with affect Mood: + anxious mood ("a lot of pressure" and "stress") Thought Process: goal directed thought process and clear/coherent thought process (with the exception of a few specific odd thoughts) Thought Content: not paranoid, no delusions and no hopelessness (not presently, but admits to episodes of hopelessness) Unusual statements/thoughts may be cultural in nature (focus on body energy, etc). Suicidal Thoughts: denies suicidal thoughts (denies presently) Occasional passive thoughts to escape, but denies plan or means Homicidal Thoughts: denies homicidal thoughts Hallucinations: no auditory hallucinations and no visual hallucinations Cognition: attention grossly intact and language grossly intact Estimated Intelligence: consistent with education level Insight: + limited insight Judgement: + limited judgement Vital Signs (Past 24 Hours): Last Vital Signs Temp 37.3 C 01/29/20 07:34 Pulse 110 H 01/29/20 07:34 Resp 16 01/29/20 07:34 BP 106/70 01/29/20 07:34 Pulse Ox 96 01/29/20 07:34 Review of Systems Constitutional: reports poor sleep related to frequent nursing checks overnight Cardiovascular: denied Respiratory: denied Gastrointestinal: reports improvement in "belly issues" Neurological: denied Psychiatric: denies symptoms other than stated above Total of at least 10 systems reviewed, pertinent positives as above and in HPI. Results & Data (PSY) Medications Administered Acetaminophen (Acetaminophen 325 Mg Tab) 650 mg PO Q4H PRN PRN Reason: Pain or Fever Stop: 02/20/20 21:46 Last Admin: 01/27/20 20:36 Dose: 325 mg Documented by: [id number] Admin: 01/23/20 16:06 Dose: 650 mg Documented by: [id number] Clarithromycin (Clarithromycin 500 Mg Tab) 500 mg PO Q12 [facility] Stop: 02/10/20 20:59 Last Admin: 01/29/20 08:43 Dose: 500 mg Documented by: [id number] Admin: 01/28/20 22:25 Dose: 500 mg Documented by: [id number] Admin: 01/28/20 08:23 Dose: 500 mg Documented by: [id number] Admin: 01/27/20 20:25 Dose: 500 mg Documented by: [id number] Famotidine (Famotidine 20 Mg Tab) 20 mg PO BID [facility] Stop: 02/25/20 08:59 Last Admin: 01/29/20 08:46 Dose: 20 mg Documented by: [id number] Admin: 01/28/20 22:23 Dose: 20 mg Documented by: [id number] Admin: 01/28/20 08:25 Dose: 20 mg Documented by: [id number] Admin: 01/27/20 22:19 Dose: Not Given Documented by: [id number] Admin: 01/27/20 07:32 Dose: Not Given Documented by: [id number] Admin: 01/26/20 21:36 Dose: 20 mg Documented by: [id number] Admin: 01/26/20 09:07 Dose: 20 mg Documented by: [id number] Magnesium Oxide (Magnesium Oxide 400 Mg Tab) 400 mg PO BID [facility] Stop: 02/20/20 21:46 Last Admin: 01/29/20 08:44 Dose: 400 mg Documented by: [id number] Admin: 01/28/20 22:31 Dose: 400 mg Documented by: [id number] Admin: 01/28/20 08:24 Dose: 400 mg Documented by: [id number] Admin: 01/27/20 20:26 Dose: 400 mg Documented by: [id number] Admin: 01/27/20 07:32 Dose: Not Given Documented by: [id number] Admin: 01/26/20 21:35 Dose: 400 mg Documented by: [id number] Admin: 01/26/20 09:05 Dose: 400 mg Documented by: [id number] Admin: 01/25/20 20:32 Dose: 400 mg Documented by: [id number] Admin: 01/25/20 09:01 Dose: 400 mg Documented by: [id number] Admin: 01/24/20 21:16 Dose: 400 mg Documented by: [id number] Admin: 01/24/20 09:20 Dose: 400 mg Documented by: [id number] Admin: 01/23/20 20:58 Dose: 400 mg Documented by: [id number] Admin: 01/23/20 09:02 Dose: 400 mg Documented by: [id number] Admin: 01/22/20 20:15 Dose: 400 mg Documented by: [id number] Admin: 01/22/20 09:20 Dose: 400 mg Documented by: [id number] Admin: 01/21/20 22:37 Dose: 400 mg Documented by: [id number] Mesalamine (Mesalamine 800 Mg Tabcr) 1,600 mg PO TID [facility] Stop: 02/21/20 13:59 Last Admin: 01/29/20 08:44 Dose: 1,600 mg Documented by: [id number] Admin: 01/28/20 22:25 Dose: 1,600 mg Documented by: [id number] Admin: 01/28/20 12:44 Dose: 1,600 mg Documented by: [id number] Admin: 01/28/20 08:24 Dose: 1,600 mg Documented by: [id number] Admin: 01/27/20 20:27 Dose: 1,600 mg Documented by: [id number] Admin: 01/27/20 14:18 Dose: 1,600 mg Documented by: [id number] Admin: 01/27/20 07:32 Dose: Not Given Documented by: [id number] Admin: 01/26/20 21:36 Dose: 1,600 mg Documented by: [id number] Admin: 01/26/20 14:20 Dose: 1,600 mg Documented by: [id number] Admin: 01/26/20 09:05 Dose: 1,600 mg Documented by: [id number] Admin: 01/25/20 20:32 Dose: 1,600 mg Documented by: [id number] Admin: 01/25/20 13:35 Dose: 1,600 mg Documented by: [id number] Admin: 01/25/20 09:01 Dose: 1,600 mg Documented by: [id number] Admin: 01/24/20 21:09 Dose: 1,600 mg Documented by: [id number] Admin: 01/24/20 13:31 Dose: Not Given Documented by: [id number] Admin: 01/24/20 09:19 Dose: 1,600 mg Documented by: [id number] Admin: 01/23/20 20:59 Dose: 1,600 mg Documented by: [id number] Admin: 01/23/20 13:52 Dose: Not Given Documented by: [id number] Admin: 01/23/20 13:00 Dose: 1,600 mg Documented by: [id number] Admin: 01/22/20 20:15 Dose: 1,600 mg Documented by: [id number] Admin: 01/22/20 13:48 Dose: 1,600 mg Documented by: [id number] Metronidazole (Metronidazole 500 Mg Tab) 500 mg PO Q8 [facility] Stop: 02/05/20 13:59 Last Admin: 01/29/20 06:53 Dose: Not Given Documented by: [id number] Admin: 01/28/20 22:32 Dose: 500 mg Documented by: [id number] Admin: 01/28/20 12:44 Dose: 500 mg Documented by: [id number] Admin: 01/28/20 05:34 Dose: 500 mg Documented by: [id number] Admin: 01/27/20 22:19 Dose: 500 mg Documented by: [id number] Admin: 01/27/20 14:18 Dose: 500 mg Documented by: [id number] Admin: 01/27/20 06:23 Dose: 500 mg Documented by: [id number] Admin: 01/26/20 21:36 Dose: 500 mg Documented by: [id number] Admin: 01/26/20 14:20 Dose: 500 mg Documented by: [id number] Multi-Ingredient Cream (Artificial Tears Op Oint 3.5 Gm Tube) 1 appln OP DAILY [facility] Stop: 02/22/20 11:44 Last Admin: 01/29/20 08:44 Dose: 1 appln Documented by: [id number] Admin: 01/28/20 08:25 Dose: 1 appln Documented by: [id number] Admin: 01/27/20 07:37 Dose: Not Given Documented by: [id number] Admin: 01/26/20 09:09 Dose: Not Given Documented by: [id number] Admin: 01/25/20 09:02 Dose: 1 appln Documented by: [id number] Admin: 01/24/20 09:21 Dose: 1 appln Documented by: [id number] Admin: 01/23/20 13:22 Dose: Not Given Documented by: [id number] Multivitamins/Minerals (Calcium 600mg + Vit D 400 Iu Tab) 1 tab PO BID [facility] Stop: 02/21/20 20:59 Last Admin: 01/29/20 08:44 Dose: 1 tab Documented by: [id number] Admin: 01/28/20 22:31 Dose: 1 tab Documented by: [id number] Admin: 01/28/20 08:23 Dose: 1 tab Documented by: [id number] Admin: 01/27/20 20:26 Dose: 1 tab Documented by: [id number] Admin: 01/27/20 07:32 Dose: Not Given Documented by: [id number] Admin: 01/26/20 21:35 Dose: 1 tab Documented by: [id number] Admin: 01/26/20 09:04 Dose: 1 tab Documented by: [id number] Admin: 01/25/20 20:32 Dose: 1 tab Documented by: [id number] Admin: 01/25/20 09:02 Dose: 1 tab Documented by: [id number] Admin: 01/24/20 21:10 Dose: 1 tab Documented by: [id number] Admin: 01/24/20 09:20 Dose: 1 tab Documented by: [id number] Admin: 01/23/20 20:58 Dose: 1 tab Documented by: [id number] Admin: 01/23/20 09:02 Dose: 1 tab Documented by: [id number] Admin: 01/22/20 20:15 Dose: 1 tab Documented by: [id number] Ondansetron HCl (Ondansetron 4 Mg Od Tab) 4 mg PO Q4H PRN PRN Reason: Nausea Stop: 02/22/20 10:44 Last Admin: 01/29/20 05:48 Dose: 4 mg Documented by: [id number] Admin: 01/27/20 11:50 Dose: 4 mg Documented by: [id number] Pantoprazole Sodium (Pantoprazole 40 Mg Tab) 40 mg PO BID [facility] Stop: 02/24/20 20:59 Last Admin: 01/29/20 08:45 Dose: 40 mg Documented by: [id number] Admin: 01/28/20 22:17 Dose: 40 mg Documented by: [id number] Admin: 01/28/20 08:26 Dose: 40 mg Documented by: [id number] Admin: 01/27/20 20:25 Dose: 40 mg Documented by: [id number] Admin: 01/27/20 07:32 Dose: Not Given Documented by: [id number] Admin: 01/26/20 21:36 Dose: 40 mg Documented by: [id number] Admin: 01/26/20 09:04 Dose: 40 mg Documented by: [id number] Admin: 01/25/20 20:32 Dose: 40 mg Documented by: [id number] Prednisone (Prednisone 20 Mg Tab) 40 mg PO DAILY [facility] Stop: 02/25/20 08:59 Last Admin: 01/29/20 08:45 Dose: 40 mg Documented by: [id number] Admin: 01/28/20 08:25 Dose: 40 mg Documented by: [id number] Admin: 01/27/20 07:33 Dose: Not Given Documented by: [id number] Admin: 01/26/20 09:06 Dose: 40 mg Documented by: [id number] Sucralfate (Sucralfate 1 Gm/10 Ml Udc) 1 gm PO ACHS [facility] Stop: 02/24/20 20:59 Last Admin: 01/29/20 08:43 Dose: 1 gm Documented by: [id number] Admin: 01/28/20 22:17 Dose: 1 gm Documented by: [id number] Admin: 01/28/20 17:15 Dose: 1 gm Documented by: [id number] Admin: 01/28/20 11:03 Dose: 1 gm Documented by: [id number] Admin: 01/28/20 08:13 Dose: 1 gm Documented by: [id number] Admin: 01/27/20 22:19 Dose: Not Given Documented by: [id number] Admin: 01/27/20 18:42 Dose: 1 gm Documented by: [id number] Admin: 01/27/20 11:51 Dose: 1 gm Documented by: [id number] Admin: 01/27/20 06:23 Dose: 1 gm Documented by: [id number] Admin: 01/26/20 21:35 Dose: 1 gm Documented by: [id number] Admin: 01/26/20 17:34 Dose: 1 gm Documented by: [id number] Admin: 01/26/20 13:17 Dose: Not Given Documented by: [id number] Admin: 01/26/20 09:04 Dose: 1 gm Documented by: [id number] Admin: 01/25/20 21:39 Dose: 1 gm Documented by: [id number] Coding Level of Care Code 57251 U Intl Hosp Care Lvl 3 Diagnoses Anxiety F41.9
== END 2020-01-29 19:05 | disposition home or self-care (01) | DRG 387 ==
LOC: ED 11:40 → 2N 11:40 → SUATTDRO 20:17 → 2N 21:06 → SUATTDRO 01-23 16:35 → 3N 01-24 11:49 → 3E 01-26 16:39